=== PATIENT | male | born 1950 | race Caucasian/White ===

== ENCOUNTER 2022-07-08 13:33 | Inpatient (IN) ==
[2022-07-08] MEDS ORDERED: SODIUM CHLORIDE 0.9% 1000ML 1,000 ML IV STA (13:46)
[2022-07-08] MEDS ORDERED: ONDANSETRON INJ 2 MG/ML 2 ML VIAL IV STA (13:46)
--- NOTE | 2022-07-08 13:56 | Emergency Department Note ---
Impression & Plan Avascular necrosis of bone of right hip, Acute lumbar radiculopathy ED Provider Note NAME: ANÍBAL WILSON AGE: 71 SEX: M : 1950 ARRIVES VIA: Ambulance INFORMANT: Patient, ED PROVIDER(S): Christopher Jacobs DO CHIEF COMPLAINT: Hip pain HPI: The patient is a 71-year-old male who presented to the emergency department by ambulance for an evaluation of hip pain. The patient has a history of avascular necrosis of his right hip. He also has a history of lumbar disc disease. The patient states that he has been managed with outpatient medi cations until over the last 48 hours. He started noticing worsening pain especially over his right hip. He states when he went to get out of bed this morning his pain was very severe. He presented to the emergency department by ambulance for his pain. The patient states has been compliant with his outpatient medications. He recently had a cardiac catheterization. He did not require any stenting at that time but he does have a history of coronary artery disease and stenting in the past. The patient had an MRI at the beginning of this month. This was done at the [place] [facility]. The patient states no surgical intervention was required at that time. The patient denies having any trauma. He states his pain is severe. ROS: See above HPI for pertinent positives & negatives. A total of 10 systems reviewed and were otherwise negative. PAST MEDICAL HISTORY: See Below PAST SURGICAL HISTORY: See Below FAMILY HISTORY: See Below SOCIAL HISTORY: See Below HOME MEDICATIONS: See Below ALLERGIES: See Below VITALS: See Below PHYSICAL EXAMINATION: GENERAL: Patient is awake and alert. The patient is very anxious appearing. He appears to be uncomfortable EYES: The conjunctivae are clear. The pupils are round and reactive. EARS, NOSE, MOUTH AND THROAT: The nose is without any evidence of any deformity. NECK: The neck is nontender and supple. RESPIRATORY: Normal respiratory effort is noted there is no evidence of wheezing rhonchi or rales CARDIOVASCULAR: Regular rate and rhythm noted there no murmurs rubs or gallops normal S1 normal S2. GASTROINTESTINAL: The abdomen is soft. Abdomen is nontender. BACK: No midline tenderness was noted however significant pain was noted over the right paravertebral musculature into the right sacroiliac joint. Range of motion does elicit pain. MUSCULOSKELETAL/EXTREMITIES: No gross deformity was noted. There is pain with range of motion testing of the right hip. There is no shortening. SKIN: Skin was warm and dry. Pulses are symmetric in both feet NEUROLOGIC: Patient is awake alert and oriented x3 strength is symmetric patellar reflexes are 1+ bilaterally. Achilles tendon reflexes were 1+ bilaterally. Great toe raise was symmetric. MEDICAL DECISION MAKING: The patient is a 71-year-old male who presented to the emergency department by ambulance for an evaluation of hip pain. The patient had no trauma but he does have a history of avascular necrosis. The patient presented to the emergency department for an evaluation because of severe pain. He has been taking his outpatient medication with only minimal relief. He is scheduled to see a pain specialist for injections in his back but this is not for many weeks. The patient has no focal neurologic deficits. I discussed the patient's laboratory and radiographic studies with him. I did review the patient's MRI report from the [place] [facility] which was done on June 29. Ultimately the patient was feeling somewhat better on reevaluation but he was still having severe pain with any ambulation. For this reason I will discuss his case with the on-call [facility] hospitalist. Triage Nursing notes reviewed. Prior medical records reviewed Vital Signs: reviewed and remarkable for no significant abnormalities Differential diagnosis: Musculoskeletal, disc herniation, fracture, metastatic disease, cord compr ession, discitis, sciatica, cauda equina, infection, aortic disease, renal colic, gastrointestinal, as well as other pathologies. ER treatment provided: See below Diagnostics interpreted by me: ECG: EKG was obtained in the emergency department. My interpretation is normal sinus rhythm at 70 bpm. There is no ectopy. There was no acute ST segment abnormalities noted. Left bundle branch block pattern was noted. This was compared to a tracing from July 21, 2003. No changes were noted. Cardiac Monitoring: An order was placed for continuous cardiac monitoring. The monitor shows a rate of 75 bpm with sinus rhythm. Laboratory studies: As stated above and show below. Imaging studies: See below. Radiographic imaging was reviewed by myself Consultation(s): I discussed this case with Dr. Lopez who is on-call for the [facility] group. Past Med/Surg History Medical History (Updated 07/08/22 @ 16:16 by Christopher Jacobs DO) Cardiac murmur DX CHILD> NO LONGER HAS PER PATIENT Hx of fracture of right hip Myocardial Infarction 2012 > 1 STENT Sleep apnea NO OFFICIAL DX Swallowing problem REASON FOR EGD Surgical History H/O heart artery stent 1 STENT> FEB 2013 > FOR CHEST PAIN> [facility] H/O left knee surgery H/O partial thyroidectomy History of cardiac cath SEE STENT INFO History of colonoscopy S/P cervical spinal fusion NO ROM RESTRICTION S/P tonsillectomy and adenoidectomy Family History Denies family history of Crohn's disease Colorectal cancer Ulcerative colitis Social History Smoking Status: Former smoker Tobacco Type: Cigarettes Cigarettes Per Day: 1 CIGAR PER DAY; Second Hand Exposure: No; Hx Alcohol Use: Yes Alcohol type: beer Alcohol Intake Frequency: 4 or More x per/Week Hx Substance Use: No Preferred Language: Thai Communication Ability: Effective [employer] Required: No Beliefs That Will Affect Care: None Current Living Situation: Alone Feels Safe at Home: Yes Assistive Devices: Glasses Allergies Allergies Allergy/AdvReac Type Severity Reaction Status Date / Time cashew nut Allergy Unknown Verified 07/01/22 12:54 Home Meds Home Medications Medication Instructions Recorded Confirmed alprazolam 0.25 mg tablet 0.25 mg PO BID 07/12/19 07/01/22 diphenhydramine HCl 25 mg capsule 25 mg PO DAILY PRN Allergy Symptoms 07/12/19 07/01/22 (Allergy (diphenhydramine)) hydrochlorothiazide 25 mg tablet 25 mg PO QAM 07/12/19 07/01/22 metoprolol tartrate 50 mg tablet 50 mg PO BID 07/12/19 07/01/22 atorvastatin 40 mg tablet 40 mg PO DAILY 05/11/22 07/01/22 losartan 50 mg tablet 50 mg PO DAILY 05/11/22 07/01/22 tamsulosin 0.4 mg capsule 0.4 mg PO DAILY 05/11/22 07/01/22 aspirin 81 mg tablet,delayed 81 mg PO DAILY 05/18/22 07/01/22 release Previous Rx's Medication Instructions Recorded pantoprazole 40 mg tablet,delayed 40 mg PO BID #180 tabs 07/26/19 release cetirizine 10 mg capsule 10 mg PO BID PRN Allergy Symptoms 01/10/20 #60 caps hydroxyzine HCl 25 mg tablet 50 mg PO .qhs PRN itching #60 tabs 01/10/20 omalizumab 150 mg/mL subcutaneous 300 mg (2 mL) subcut Q4WK #2 mL 07/16/20 syringe (Xolair) Results & Data (ED) Vital Signs Vital Signs - 24 hr 07/08/22 13:50 07/08/22 15:44 Temperature 37.3 C Temperature Source Oral Pulse Rate 75 Respiratory Rate 16 Respiratory Effort / Characteristics Non-Labored Spontaneous Respiratory Depth Normal Respiratory Pattern Regular Blood Pressure 173/95 H Blood Pressure [Right Arm] 150/80 H Blood Pressure Mean 121 Blood Pressure Mean [Right Arm] 103 Blood Pressure Position Lying Blood Pressure Position [Right Arm] Lying Pulse Oximetry 95 Oxygen Delivery Method Room Air Sepsis Recent Fever Within 48 Hours No Sepsis New/Unexplained Change in Mental Status No Sepsis Action Taken by Nursing No Action Required Home Medications Current Medication List: was personally reviewed by me Laboratory Data Attestation: I reviewed the patient's lab results. 07/08/22 13:55 07/08/22 13:55 Lab Results 07/08/22 07/08/22 07/08/22 Range/Units 13:55 13:55 13:55 WBC 6.66 (4.8-10.8) K/ul RBC 4.83 (4.70-6.10) M/uL Hgb 15.9 (14.0-18.0) g/dl Hct 43.0 (42.0-52.0) % MCV 89.0 (80.0-100.0) fL MCH 32.9 (25.0-34.0) pg MCHC 37.0 H (32.0-36.0) g/dL RDW Std Deviation 40.2 (36.4-46.3) fL RDW Coeff of Nora 12.2 (11.5-14.5) % Plt Count 164 (130-400) K/uL MPV 11.1 (9.4-12.4) fL Immature Gran % (Auto) 0.5 % Neut % (Auto) 76.5 % Lymph % (Auto) 15.9 % Cherokee % (Auto) 5.9 % Eos % (Auto) 0.6 % Baso % (Auto) 0.6 % Neut # (Auto) 5.10 (1.40-6.50) K/uL Lymph # (Auto) 1.06 L (1.2-3.4) K/uL Cherokee # (Auto) 0.39 (0.11-0.59) K/uL Eos # (Auto) 0.04 (0-0.50) K/uL Baso # (Auto) 0.04 (0-0.2) K/uL Immature Gran # (Auto) 0.03 (0.01-0.20) K/uL PT 11.3 (9.0-12.0) Seconds INR 1.1 (0.9-1.1) APTT 26.2 (21.0-31.0) Seconds PTT Ratio 1.0 Sodium 138 (136-145) mmol/L Potassium 3.8 (3.5-5.1) mmol/L Chloride 101 (98-107) mmol/L Carbon Dioxide 29 (21-32) mmol/L Anion Gap 8 (3-11) BUN 23 (6-23) mg/dl Creatinine 1.17 (0.6-1.4) mg/dl Est Cr Clr Drug Dosing 65.4 ml/min Est GFR ( Amer) 72.8 ml/min Est GFR (Non-Af Amer) 62.8 ml/min BUN/Creatinine Ratio 19.7 (10-20) Glucose 102 H (70-99(Fasting)) mg/dl Calcium 10.3 H (8.5-10.1) mg/dl Total Bilirubin 1.0 (0.2-1.0) mg/dl AST 22 (13-39) U/L ALT 19 (7-52) U/L Alkaline Phosphatase 46 (34-104) U/L Troponin I High Sens 7.7 (0-20) pg/ml Total Protein 7.6 (6.0-8.3) gm/dl Albumin 4.6 (3.4-5.0) gm/dl Globulin 3.0 (2.5-4.0) gm/dl Albumin/Globulin Ratio 1.5 (0.9-2) Lipase 27 (11-82) U/L Urine Color Urine Appearance (Clear) Urine pH (4.5-7.5) Ur Specific Freedom (1.000-1.030) Urine Protein (Negative) Urine Glucose (UA) (Negative) Urine Ketones (Negative) Urine Blood (Negative) Urine Nitrite (Negative) Urine Bilirubin (Negative) Urine Urobilinogen (Negative) Ur Leukocyte Esterase (Negative) SARS-CoV-2, RNA, NAAT (NEGATIVE) 07/08/22 07/08/22 Range/Units 14:19 14:19 WBC (4.8-10.8) K/ul RBC (4.70-6.10) M/uL Hgb (14.0-18.0) g/dl Hct (42.0-52.0) % MCV (80.0-100.0) fL MCH (25.0-34.0) pg MCHC (32.0-36.0) g/dL RDW Std Deviation (36.4-46.3) fL RDW Coeff of Nora (11.5-14.5) % Plt Count (130-400) K/uL MPV (9.4-12.4) fL Immature Gran % (Auto) % Neut % (Auto) % Lymph % (Auto) % Cherokee % (Auto) % Eos % (Auto) % Baso % (Auto) % Neut # (Auto) (1.40-6.50) K/uL Lymph # (Auto) (1.2-3.4) K/uL Cherokee # (Auto) (0.11-0.59) K/uL Eos # (Auto) (0-0.50) K/uL Baso # (Auto) (0-0.2) K/uL Immature Gran # (Auto) (0.01-0.20) K/uL PT (9.0-12.0) Seconds INR (0.9-1.1) APTT (21.0-31.0) Seconds PTT Ratio Sodium (136-145) mmol/L Potassium (3.5-5.1) mmol/L Chloride (98-107) mmol/L Carbon Dioxide (21-32) mmol/L Anion Gap (3-11) BUN (6-23) mg/dl Creatinine (0.6-1.4) mg/dl Est Cr Clr Drug Dosing ml/min Est GFR ( Amer) ml/min Est GFR (Non-Af Amer) ml/min BUN/Creatinine Ratio (10-20) Glucose (70-99(Fasting)) mg/dl Calcium (8.5-10.1) mg/dl Total Bilirubin (0.2-1.0) mg/dl AST (13-39) U/L ALT (7-52) U/L Alkaline Phosphatase (34-104) U/L Troponin I High Sens (0-20) pg/ml Total Protein (6.0-8.3) gm/dl Albumin (3.4-5.0) gm/dl Globulin (2.5-4.0) gm/dl Albumin/Globulin Ratio (0.9-2) Lipase (11-82) U/L Urine Color Yellow Urine Appearance Clear (Clear) Urine pH 7.0 (4.5-7.5) Ur Specific Freedom 1.021 (1.000-1.030) Urine Protein Negative (Negative) Urine Glucose (UA) Negative (Negative) Urine Ketones Negative (Negative) Urine Blood Negative (Negative) Urine Nitrite Negative (Negative) Urine Bilirubin Negative (Negative) Urine Urobilinogen Negative (Negative) Ur Leukocyte Esterase Negative (Negative) SARS-CoV-2, RNA, NAAT NEGATIVE (NEGATIVE) Administered Medications Morphine Sulfate (Morphine Sulfate 4 Mg/Ml 1 Ml Carp\Vial) 4 mg IV Q15M PRN PRN Reason: Pain Stop: 07/22/22 13:45 Last Admin: 07/08/22 14:08 Dose: 4 mg Documented By: ANNE MARIE Discontinued Medications Sodium Chloride (Nss 1000ml) 1,000 mls @ 999 mls/hr IV .Q1H1M STA Stop: 07/08/22 14:46 Last Infusion: 07/08/22 15:19 Dose: 0 mls/hr Documented By: Admin: 07/08/22 14:06 Dose: 999 mls/hr Documented By: ANNE MARIE Ondansetron HCl (Ondansetron Inj 2 Mg/Ml 2 Ml Vial) 4 mg IV NOW STA Stop: 07/08/22 13:47 Last Admin: 07/08/22 14:06 Dose: 4 mg Documented By: ANNE MARIE Imaging Data Radiologist's Impression: Chest X-Ray 07/08/22 13:46 SINGLE VIEW CHEST CLINICAL HISTORY: Right hip pain. FINDINGS: An AP, portable, upright chest radiograph is obtained. No prior studies are available for comparison at the time of dictation. The examination is degraded by portable technique and apical lordotic positioning. The cardiomediastinal silhouette is unremarkable noting atherosclerotic calcification of the thoracic aorta. There are tiny calcified granulomas. The lungs and pleural spaces are otherwise clear note mild bibasilar s carring/atelectasis. No pneumothorax is seen. The skeletal structures are osteopenic. The bony thorax is grossly intact. Fusion hardware is noted in the lower cervical spine. IMPRESSION: No active disease in the chest. ACT 112: Negative or not required by law. Electronically signed by: Bryan Jacobsen M.D. 07/08/2022 3:01 PM Femur X-Ray 07/08/22 13:46 SINGLE VIEW PELVIS; 3 VIEWS RIGHT FEMUR CLINICAL HISTORY: Right hip pain. FINDINGS: An AP view of the pelvis with AP, frog-leg, and crosstable lateral views of the right femur are obtained. No prior studies are available for comparison at the time of dictation. The skeletal structures are osteopenic. There is no radiographic evidence of acute fracture involving the hips or bony pelvis. There is no radiographic evidence of right femoral fracture. There is evidence of avascular necrosis of the femoral heads, right greater than left. Rhvd-vh-[id number] degenerative joint space narrowing is seen in both hips. There is degenerative sclerosis of the sacroiliac joints. Enthesophytes arise from the anterior superior iliac spines. Lumbosacral spondylosis is partially imaged. The right knee joint is grossly maintained. The overlying soft tissues are within normal limits. There are numerous pelvic phleboliths. Atherosclerotic calcification is seen in the femoral arteries. There is no evidence of bowel obstruction. IMPRESSION: 1. No acute bony abnormality is seen involving the hips or pelvis. 2. There is no radiographic evidence of right femoral fracture. 3. There is avascular necrosis of the femoral heads, right greater than left. 4. Degenerative change as above. Electronically signed by: Bryan Jacobsen M.D. 07/08/2022 2:59 PM Lumbar Spine X-Ray 07/08/22 13:46 LUMBAR SPINE 5 VIEWS HISTORY: Low back pain COMPARISON: None. FINDINGS: There is no fracture. There is 5 mm of anterolisthesis of L4 on L5. Mild disc space narrowing at L4-L5. The remaining disc spaces are preserved for age. Moderate facet degenerative changes within the lower lumbar spine. Avascul ar necrosis partially visualized femoral heads. This is better present on the same date pelvis radiograph. IMPRESSION: 1. No fractures within the lumbar spine. 2. Degenerative changes as described above. ACT 112: Negative or not required by law. Electronically signed by: Yoandy Virk M.D. 07/08/2022 3:14 PM Pelvis X-Ray 07/08/22 13:46 SINGLE VIEW PELVIS; 3 VIEWS RIGHT FEMUR CLINICAL HISTORY: Right hip pain. FINDINGS: An AP view of the pelvis with AP, frog-leg, and crosstable lateral views of the right femur are obtained. No prior studies are available for comparison at the time of dictation. The skeletal structures are osteopenic. There is no radiographic evidence of acute fracture involving the hips or bony pelvis. There is no radiographic evidence of right femoral fracture. There is evidence of avascular necrosis of the femoral heads, right greater than left. [id number] degenerative joint space narrowing is seen in both hips. There is degenerative sclerosis of the sacroiliac joints. Enthesophytes arise from the anterior superior iliac spines. Lumbosacral spondylosis is partially imaged. The right knee joint is grossly maintained. The overlying soft tissues are within normal limits. There are numerous pelvic phleboliths. Atherosclerotic calcification is seen in the femoral arteries. There is no evidence of bowel obstruction. IMPRESSION: 1. No acute bony abnormality is seen involving the hips or pelvis. 2. There is no radiographic evidence of right femoral fracture. 3. There is avascular necrosis of the femoral heads, right greater than left. 4. Degenerative change as above. Electronically signed by: Bryan Jacobsen M.D. 07/08/2022 2:59 PM Discharge Plan Visit Data Chief Complaint: Hip Pain Stated Complaint: R HIP PAIN ED Provider: Christopher Jacobs Discharge Problem: Avascular necrosis of bone of right hip, Acute lumbar radiculopathy Patient Disposition: Being Evaluated by Hospitalist Forms Stand Alone Forms: My [employer] Prescriptions Prescriptions: No Action alprazolam 0.25 mg tablet 0.25 mg PO BID diphenhydramine HCl [Allergy (diphenhydramine)] 25 mg capsule 25 mg PO DAILY PRN (Reason: Allergy Symptoms) hydrochlorothiazide 25 mg tablet 25 mg PO QAM metoprolol tartrate 50 mg tablet 50 mg PO BID pantoprazole 40 mg tablet,delayed release (DR/EC) 40 mg PO BID Qty: 180 1RF cetirizine 10 mg capsule 10 mg PO BID PRN (Reason: Allergy Symptoms) Qty: 60 6RF hydroxyzine HCl 25 mg tablet 50 mg PO .qhs PRN (Reason: itching) Qty: 60 6RF Xolair 150 mg/mL syringe 300 mg subcut Q4WK Qty: 2 11RF losartan 50 mg tablet 50 mg PO DAILY atorvastatin 40 mg tablet 40 mg PO DAILY tamsulosin 0.4 mg capsule 0.4 mg PO DAILY aspirin 81 mg Tablet,Delayed Release (Dr/Ec) 81 mg PO DAILY Referrals Referrals: Delmar Staples DO [Outside Practitioners] -
[2022-07-08] MEDS: MoRPHine SULFATE 4 MG/ML 1 ML CARP\\VIAL IV PRN ×3 (14:08→21:08)
[2022-07-08 14:36] LABS: Basophils # (auto) 0.04 K/uL (0-0.2); Basophils % (auto) 0.6 %; Eosinophils # (auto) 0.04 K/uL (0-0.50); Eosinophils % (auto) 0.6 %; Hemoglobin 15.9 g/dl (14.0-18.0); Immature Granulocytes # (auto) 0.03 K/uL (0.01-0.20); Immature Granulocytes % (auto) 0.5 %; Lymphocytes # (auto) 1.06 K/uL (1.2-3.4); Lymphocytes % (auto) 15.9 %; Mean Corpuscular Hemoglobin 32.9 pg (25.0-34.0); Mean Platelet Volume 11.1 fL (9.4-12.4); Monocytes # (auto) 0.39 K/uL (0.11-0.59); Monocytes % (auto) 5.9 %; Neutrophils % (auto) 76.5 %; Platelet Count 164 K/uL (130-400); RDW Coefficient of Variation 12.2 % (11.5-14.5); RDW Standard Deviation 40.2 fL (36.4-46.3); Red Blood Count 4.83 M/uL (4.70-6.10); White Blood Count 6.66 K/ul (4.8-10.8)
[2022-07-08 14:55] LABS: Albumin Globulin Ratio 1.5 (0.9-2); Albumin Level 4.6 gm/dl (3.4-5.0); BUN Creatinine Ratio 19.7 (10-20); Calcium 10.3 mg/dl (8.5-10.1); Creatinine Clr Calc Pharmacy 65.4 ml/min; Est GFR (African American) 72.8 ml/min; Est GFR (Non-African American) 62.8 ml/min; Potassium 3.8 mmol/L (3.5-5.1); Total Protein 7.6 gm/dl (6.0-8.3)
[2022-07-08 15:00] LABS: Troponin I High Sensitivity 7.7 pg/ml (0-20)
--- NOTE | 2022-07-08 15:01 | XRay Report ---
SINGLE VIEW PELVIS; 3 VIEWS RIGHT FEMUR CLINICAL HISTORY: Right hip pain. FINDINGS: An AP view of the pelvis with AP, frog-leg, and crosstable lateral views of the right femur are obtained. No prior studies are available for comparison at the time of dictation. The skeletal s tructures are osteopenic. There is no radiographic evidence of acute fracture involving the hips or b kira pelvis. There is no radiographic evidence of right femoral fracture. There is evidence of avascul ar necrosis of the femoral heads, right greater than left. Hplk-dh-[id number] degenerative joint space narrowing is seen in both hips. There is degenerative sclerosis of the sacroiliac joints. Enthesophyt es arise from the anterior superior iliac spines. Lumbosacral spondylosis is partially imaged. The ri ght knee joint is grossly maintained. The overlying soft tissues are within normal limits. There are numerous pelvic phleboliths. Atherosclerotic calcification is seen in the femoral arteries. There is no evidence of bowel obstruction. IMPRESSION: 1. No acute bony abnormality is seen involving the hips or pelvis. 2. There is no radiographic evidence of right femoral fracture. 3. There is avascular necrosis of the femoral heads, right greater than left. 4. Degenerative change as above. Electronically signed by: Bryan Jacobsen M.D. 07/08/2022 2:59 PM
--- NOTE | 2022-07-08 15:02 | XRay Report ---
SINGLE VIEW CHEST CLINICAL HISTORY: Right hip pain. FINDINGS: An AP, portable, upright chest radiograph is obtained. No prior studies are available for c omparison at the time of dictation. The examination is degraded by portable technique and apical lord otic positioning. The cardiomediastinal silhouette is unremarkable noting atherosclerotic calcificati on of the thoracic aorta. There are tiny calcified granulomas. The lungs and pleural spaces are other parker clear note mild bibasilar scarring/atelectasis. No pneumothorax is seen. The skeletal structures are osteopenic. The bony thorax is grossly intact. Fusion hardware is noted in the lower cervical sp ine. IMPRESSION: No active disease in the chest. ACT 112: Negative or not required by law. Electronically signed by: Bryan Jacobsen M.D. 07/08/2022 3:01 PM
[2022-07-08 15:08] LABS: Appearance Urine Clear (Clear); Bilirubin Urine Negative (Negative); Blood Urine Negative (Negative); Color Urine Yellow; Glucose Urine UA Negative (Negative); Ketones Urine Negative (Negative); Leukocyte Esterase Urine Negative (Negative); Nitrite Urine Negative (Negative); Protein Urine Negative (Negative); Specific Gravity Urine 1.021 (1.000-1.030); Urobilinogen Urine Negative (Negative)
--- NOTE | 2022-07-08 15:16 | XRay Report ---
LUMBAR SPINE 5 VIEWS HISTORY: Low back pain COMPARISON: None. FINDINGS: There is no fracture. There is 5 mm of anterolisthesis of L4 on L5. Mild disc space narrow ing at L4-L5. The remaining disc spaces are preserved for age. Moderate facet degenerative changes wi thin the lower lumbar spine. Avascular necrosis partially visualized femoral heads. This is better pr esent on the same date pelvis radiograph. IMPRESSION: 1. No fractures within the lumbar spine. 2. Degenerative changes as described above. ACT 112: Negative or not required by law. Electronically signed by: Yoandy Virk M.D. 07/08/2022 3:14 PM
[2022-07-08 15:19] LABS: INR 1.1 (0.9-1.1); Partial Thromboplastin Time 26.2 Seconds (21.0-31.0); Prothrombin Time 11.3 Seconds (9.0-12.0)
--- NOTE | 2022-07-08 16:57 | History & Physical Report ---
Date of Service July 08, 2022 Assessment & Plan (1) Acute lumbar radiculopathy: Plan: Low back pain with right leg radiculopathy Worsened x24 hours, with shooting pain down the right leg into the ankle -MRI lumbar without contrast from 06/29/2022: Multilevel for aminal stenosis, spinal stenosis L3-L4/L4-L5,. Thecal sac 8.6 mm L3-L4 with moderate right neural for aminal stenosis, moderate foraminal stenosis on the left. L4/L5 7 mm anterior listhesis with broad-based disc protrusion indenting the ventral thecal sac, thecal sac measuring 7.5 mm suggestive of spinal canal stenosis with marked for aminal stenosis on the right/left and Samson equina compression. L5/S1 broad-based disc bulge, spinal canal within normal limits, bilateral neural for aminal stenosis. Patient is without weakness, numbness, urinary retention, or saddle anesthesia Had discussed MRI above and back pain with orthospine at [place], was pending an epidural injection in July rather than pursuing lumbar decompression Avascular necerosis as noted below; Physical exam on admission more consistent with lumbar stenosis with radiculopathy -Multimodal pain control. Aspirin, Toradol, breakthrough hydromorphone third- line. If adequate pain control cannot be achieved with multimodal control above, consult pain management in a.m. for consideration of epidural injection If weakness, urinary retention, incontinence, or other red flag symptoms develop repeat stat MRI. (2) Avascular necrosis of bone of right hip: Plan: Patient has known avascular necrosis of both femoral heads right greater than left, is anticipating joint replacement after his back pain is better controlled. Physical exam on admission more consistent with lumbar stenosis with radiculopathy -Pelvis XR: IMPRESSION:1. No acute bony abnormality is seen involving the hips or pelvis.2. There is no radiographic evidence of right femoral fracture.3. There is avascular necrosis of the femoral heads, right greater than left.4. Degenerative change as above. -Lumbar x-ray: No acute fractures, degenerative changes -Right femur: No evidence of right femoral fracture. Avascular necrosis of the femoral head right greater than left. Continue pain control as above (3) CAD (coronary atherosclerotic disease): Plan: cardiac cath 05/18/2022 which showed mild in-stent restenosis and multivessel mild to moderate nonocclusive coronary disease. - Had 1X mid RCA stent originally placed in 2012. At cath 05/18 PCI was not recommended. P - At time of bedside visit he does not have any shortness of breath, difficulty breathing, or chest pain. Continue metoprolol, losartan, atorvastatin, aspirin. Given existing stent with restenosis will not hold aspirin prior to pain management evaluation (4) Chronic idiopathic urticaria: Plan: Continue home omalizumab, patient next due in July No hives on assessment, continue outpatient follow-up (5) Hyperlipidemia: Plan: Continue statin (6) Reflux esophagitis: Plan: Continue Protonix (7) HTN (hypertension): Plan: Continue hydrochlorothiazide/losartan/metoprolol Patient does not know medications by heart, but denies recent medication changes other than the ones made at his catheterization and endorses medications as reviewed from last visit. History of Present Illness Primary Care Provider: [facility] Nguyễn is a 71-year-old male with a past medical history of CAD, chronic angina, hyperlipidemia, reflux esophagitis, hypertension, and avascular necrosis of the right hip who presents with inability to ambulate due to severe pain of the right hip. He was recently seen at [facility] with an MRI 06/29/2021 which showed evidence of spinal stenosis without significant compression or cauda equina. You are seen at bedside. He reports he has a longstanding history of bilateral hip pain due to avascular necrosis for which she is following with orthopedics with the [facility], eventually will have a hip replacement but has been pending work-up for his back pain first. He has had progressive back pain over the last 2 years and has lumbar stenosis. He was recently seen in the [facility] 06/29/2022 for severe back pain. He had a MRI at that time which was reviewed and shows as follows: MRI lumbar without contrast from 06/29/2022: Multilevel for aminal stenosis, spinal stenosis L3-L4/L4-L5,. Thecal sac 8.6 mm L3-L4 with moderate right neural for aminal stenosis, moderate foraminal stenosis on the left. L4/L5 7 mm anterior listhesis with broad-based disc protrusion indenting the ventral thecal sac, thecal sac measuring 7.5 mm suggestive of spinal canal stenosis with marked for aminal stenosis on the right/left and Samson equina compression. L5/S1 broad-based disc bulge, spinal canal within normal limits, bilateral neural for aminal stenosis. Saw Dr. Dominick Aguila [facility] and discussed the above results with him. Per that consultation did not want to perform decompression surgery yet, but was going to try and injection shceduled for August 17. He reports after being discharged his back pain did improve, but suddenly worsened when he woke up this morning. He reports his pain was so severe he could not get out of bed due to pain and had to crawl to the door to let his dog out. He has not had any numbness/tingling or weakness, but his leg movement is limited by exacerbation of pain. Does have shooting pain which goes into his right leg and travels all the way down to the ankle. No pain in his left leg. He is chronically weaker on his right leg, but his strength in the lower extremities has not changed. He is voiding/peeing normally. He has not had a bowel movement in 2 days, is passing gas. He does not have any numbness/tingling in the saddle region. Reports he has had intermittent chest pain with ambulation, had a cardiac cath 05/18/2022 which showed mild in-stent restenosis and multivessel mild to moderate nonocclusive coronary disease. Had 1X mid RCA stent originally placed in 2012. At cath 05/18 PCI was not recommended. Patient was optimized on medical therapy with resumption of low-dose aspirin, and high intensity statin therapy, beta-sandi, and losartan. At time of bedside visit he does not have any shortness of breath, difficulty breathing, or chest pain. Pelvix XR: IMPRESSION:1. No acute bony abnormality is seen involving the hips or pelvis.2. There is no radiographic evidence of right femoral fracture.3. There is avascular necrosis of the femoral heads, right greater than left.4. Degenerative change as above. Lumbar x-ray: No acute fractures, degenerative changes Right femur: No evidence of right femoral fracture. Avascular necrosis of the femoral head right greater than left. CXR: No acute findings hx [facility] fusion by [facility] 2008 Otherwise endorse history of hives on Omalizumab 300m next due 2nd week of july. takes for hives. Follows with Dr. Rojas as an outpatient. No recent exacerbation of hives. Medical History: Reviewed Medications: Reviewed Surgical History: Reviewed Allergies: Reviewed Social History: Quit cigarettes 2002. Etoh 6 pack daily, last drink 3 days ago, has not had withdrawal symptoms/seizures before and does not feel tremulous. Code Status: Full Code Allergies Allergy/AdvReac Type Severity Reaction Status Date / Time cashew nut Allergy Unknown Verified 07/01/22 12:54 Home Medications Medication Instructions Recorded Confirmed Type alprazolam 0.25 mg tablet 0.25 mg PO BID 07/12/19 07/01/22 History diphenhydramine HCl 25 mg capsule 25 mg PO DAILY PRN Allergy Symptoms 07/12/19 07/01/22 History (Allergy (diphenhydramine)) hydrochlorothiazide 25 mg tablet 25 mg PO QAM 07/12/19 07/01/22 History metoprolol tartrate 50 mg tablet 50 mg PO BID 07/12/19 07/01/22 History pantoprazole 40 mg tablet,delayed 40 mg PO BID #180 tabs 07/26/19 07/01/22 Rx release cetirizine 10 mg capsule 10 mg PO BID PRN Allergy Symptoms 01/10/20 07/01/22 Rx #60 caps hydroxyzine HCl 25 mg tablet 50 mg PO .qhs PRN itching #60 tabs 01/10/20 07/01/22 Rx omalizumab 150 mg/mL subcutaneous 300 mg (2 mL) subcut Q4WK #2 mL 07/16/20 07/01/22 Rx syringe (Xolair) atorvastatin 40 mg tablet 40 mg PO DAILY 05/11/22 07/01/22 History losartan 50 mg tablet 50 mg PO DAILY 05/11/22 07/01/22 History tamsulosin 0.4 mg capsule 0.4 mg PO DAILY 05/11/22 07/01/22 History aspirin 81 mg tablet,delayed 81 mg PO DAILY 05/18/22 07/01/22 History release Past Med/Surg History Medical History (Updated 07/08/22 @ 16:16 by Christopher Jacobs DO) Cardiac murmur DX CHILD> NO LONGER HAS PER PATIENT Hx of fracture of right hip Myocardial Infarction 2012 > 1 STENT Sleep apnea NO OFFICIAL DX Swallowing problem REASON FOR EGD Surgical History H/O heart artery stent 1 STENT> FEB 2013 > FOR CHEST PAIN> [facility] H/O left knee surgery H/O partial thyroidectomy History of cardiac cath SEE STENT INFO History of colonoscopy S/P cervical spinal fusion NO ROM RESTRICTION S/P tonsillectomy and adenoidectomy Family History Denies family history of Crohn's disease Colorectal cancer Ulcerative colitis Social History Smoking Status: Former smoker Tobacco Type: Cigarettes Cigarettes Per Day: 1 CIGAR PER DAY; Second Hand Exposure: No; Hx Alcohol Use: Yes Alcohol type: beer Alcohol Intake Frequency: 4 or More x per/Week Hx Substance Use: No Preferred Language: Chinese Communication Ability: Effective Travel Pta Required: No Beliefs That Will Affect Care: None Current Living Situation: Alone Feels Safe at Home: Yes Assistive Devices: Glasses Review of Systems Review of Systems: All systems reviewed & are unremarkable except as noted in HPI & below Physical Exam Physical Exam: General: A&Ox3. NAD. Cooperative. HEENT: Atraumatic, normocephalic. Vision/hearing grossly intact. Pupils equal and reactive to light. Pulm: CTAB A&P. -wheezes, -rales, -rhonchi. Symmetrical chest rise. No increased work of breathing. No respiratory distress. Cardiac: RRR, -mrg. Radial pulses intact and symmetrical. Abdominal: Nontender, nondistended, soft. BS present. Extremities: Right and left hip flexion 5/5, somewhat limited by pain but with full strength with effort. Ankle dorsiflexion/plantarflexion 5/5 bilaterally. Sensation soft touch intact in foot, ankle, distal lower leg, and proximal lower leg bilaterally. No saddle anesthesia. PT pulse intact bilaterally, cap refill less than 2 seconds. Moves upper extremities equally with full ladies' locker room attendant strength, sensation to soft touch intact in hands bilaterally. Results & Data Results & Data ([facility]) Vital Signs (Past 12 Hours) Vital Signs Temp Pulse Resp BP BP Pulse Ox O2 Del Method 07/08/22 15:44 150/80 H 07/08/22 13:50 37.3 C 75 16 173/95 H 95 Room Air PG Care Time/CCT Total # of Minutes Spent Total Time Spent with Patient: Total time spent is greater than 50% in coordination of care (as documented) at patient's floor/unit and/or counseling patient: Coding Level of Care Code 78796 INT INP/OBS CARE MIN Diagnoses Acute lumbar radiculopathy M54.16 Avascular necrosis of bone of right hip M87.051 CAD (coronary atherosclerotic disease) I25.10 Chronic idiopathic urticaria L50.1 Hyperlipidemia E78.5 Reflux esophagitis K21.0 HTN (hypertension) I10
[2022-07-08] MEDS ORDERED: MoRPHine SULFATE 2 MG/ML CARP IV PRN (20:30)
[2022-07-08] MEDS: KETOROLAC TROMETHAMINE 15 MG/ML VIAL IV PRN (21:28)
[2022-07-08] MEDS: PANTOprazole 40 MG TAB PO SCH (23:05)
[2022-07-08] MEDS: METOPROLOL TARTRATE 50 MG TAB PO SCH (23:05)
[2022-07-08] MEDS ORDERED: KETOROLAC TROMETHAMINE 15 MG/ML VIAL IV ONE (23:16)
[2022-07-08] MEDS: ACETAMINOPHEN 325 MG TAB PO PRN (23:24)
--- NOTE | 2022-07-08 23:27 | Electrocardiogram Report ---
Test Reason : Blood Pressure : / mmHG Vent. Rate : 070 BPM Atrial Rate : 070 BPM P-R Int : 158 ms QRS Dur : 136 ms QT Int : 412 ms P-R-T Axes : 045 000 084 degrees QTc Int : 444 ms Poor data quality, interpretation may be adversely affected Normal sinus rhythm Left bundle branch block Abnormal ECG When compared with ECG of 21-JUL-2003 07:03, Left bundle branch block is new Confirmed by Jp Noriega ([id number]) on 07/08/2022 11:26:51 PM Referred By: REFERRED SELF Confirmed By:Pino Noriega
[2022-07-09] MEDS: ACETAMINOPHEN 325 MG TAB PO PRN (06:03)
[2022-07-09] MEDS: KETOROLAC TROMETHAMINE 15 MG/ML VIAL IV PRN (06:04)
[2022-07-09 06:32] LABS: Basophils # (auto) 0.04 K/uL (0-0.2); Basophils % (auto) 0.6 %; Eosinophils # (auto) 0.13 K/uL (0-0.50); Hematocrit (blood only) 38.3 % (42.0-52.0); Hemoglobin 13.8 g/dl (14.0-18.0); Immature Granulocytes # (auto) 0.03 K/uL (0.01-0.20); Immature Granulocytes % (auto) 0.5 %; Lymphocytes # (auto) 1.75 K/uL (1.2-3.4); Lymphocytes % (auto) 26.8 %; Mean Corpuscular Hemoglobin 32.9 pg (25.0-34.0); Mean Corpuscular Volume 91.2 fL (80.0-100.0); Mean Platelet Volume 10.8 fL (9.4-12.4); Monocytes # (auto) 0.67 K/uL (0.11-0.59); Monocytes % (auto) 10.3 %; Neutrophils # (auto) 3.91 K/uL (1.40-6.50); Neutrophils % (auto) 59.8 %; Platelet Count 156 K/uL (130-400); RDW Coefficient of Variation 12.5 % (11.5-14.5); RDW Standard Deviation 41.1 fL (36.4-46.3); White Blood Count 6.53 K/ul (4.8-10.8)
[2022-07-09] MEDS: MoRPHine SULFATE 4 MG/ML 1 ML CARP\\VIAL IV PRN ×3 (06:34→19:38)
[2022-07-09 06:51] LABS: Calcium 9.3 mg/dl (8.5-10.1); Creatinine Clr Calc Pharmacy 50.9 ml/min; Est GFR (African American) 53.9 ml/min; Est GFR (Non-African American) 46.5 ml/min; Potassium 3.9 mmol/L (3.5-5.1)
--- NOTE | 2022-07-09 08:18 | Orthopedic Consultation ---
Date of Consultation July 09, 2022 Assessment & Plan (1) Acute lumbar radiculopathy: X-rays lumbar spine do demonstrate evidence of anterolisthesis L4-L5 and normal degenerative type change. In light of his marked change in presentation with weakness and intense radiculopathy I am going to order an updated MRI lumbar spine to review with the patient. He understands and agrees. History of Present Illness Reason for Consultation: Back and right leg pain Attending Physician: Rosa Gibbs, History of Present Illness This a very pleasant 71-year-old male who presents with a marked decline in status. He has known spinal stenosis and right sided radiculopathy in the leg. He had a marked increase in pain over the last day and unable to ambulate. He states his left lower extremity is asymptomatic. He is comfortable in spine position but cannot stand and ambulate. Allergies Allergy/AdvReac Type Severity Reaction Status Date / Time cashew nut Allergy Unknown Verified 07/01/22 12:54 Home Medications Medication Instructions Recorded Confirmed Type alprazolam 0.25 mg tablet 0.25 mg PO BID 07/12/19 07/01/22 History diphenhydramine HCl 25 mg capsule 25 mg PO DAILY PRN Allergy Symptoms 07/12/19 07/01/22 History (Allergy (diphenhydramine)) hydrochlorothiazide 25 mg tablet 25 mg PO QAM 07/12/19 07/01/22 History metoprolol tartrate 50 mg tablet 50 mg PO BID 07/12/19 07/01/22 History pantoprazole 40 mg tablet,delayed 40 mg PO BID #180 tabs 07/26/19 07/01/22 Rx release cetirizine 10 mg capsule 10 mg PO BID PRN Allergy Symptoms 01/10/20 07/01/22 Rx #60 caps hydroxyzine HCl 25 mg tablet 50 mg PO .qhs PRN itching #60 tabs 01/10/20 07/01/22 Rx omalizumab 150 mg/mL subcutaneous 300 mg (2 mL) subcut Q4WK #2 mL 07/16/20 07/01/22 Rx syringe (Xolair) atorvastatin 40 mg tablet 80 mg PO DAILY 05/11/22 07/01/22 History losartan 50 mg tablet 50 mg PO DAILY 05/11/22 07/01/22 History tamsulosin 0.4 mg capsule 0.4 mg PO DAILY 05/11/22 07/01/22 History aspirin 81 mg tablet,delayed 81 mg PO DAILY 05/18/22 07/01/22 History release Patient History Medical History (Updated 07/08/22 @ 16:16 by Christopher Jacobs DO) Cardiac murmur DX CHILD> NO LONGER HAS PER PATIENT Hx of fracture of right hip Myocardial Infarction 2012 > 1 STENT Sleep apnea NO OFFICIAL DX Swallowing problem REASON FOR EGD Surgical History H/O heart artery stent 1 STENT> FEB 2013 > FOR CHEST PAIN> [facility] H/O left knee surgery H/O partial thyroidectomy History of cardiac cath SEE STENT INFO History of colonoscopy S/P cervical spinal fusion NO ROM RESTRICTION S/P tonsillectomy and adenoidectomy Family History Denies family history of Crohn's disease Colorectal cancer Ulcerative colitis Social History Smoking Status: Former smoker Tobacco Type: Cigarettes Cigarettes Per Day: 1 CIGAR PER DAY; Smoking End Date: 2002; Second Hand Exposure: No; Hx Alcohol Use: Yes Alcohol type: beer Alcohol Intake Frequency: 4 or More x per/Week Hx Substance Use: No Preferred Language: [place]ican Communication Ability: Effective 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 He has weakness to dorsiflexion extensor houses longus on the right with a part 5 on the left. Cold sensation and touch is somewhat diminished on the right lower extremity compared to the left. He has marked tension signs straight leg raising on the right compared to the left. Results & Data ([facility]) Vital Signs (Past 12 Hours) Vital Signs Temp Pulse Resp BP Pulse Ox O2 Del Method 07/09/22 07:37 36.4 C L 57 L 16 108/70 93 Room Air 07/08/22 22:30 Room Air 07/08/22 21:00 Room Air 07/08/22 21:00 36.7 C 71 22 152/63 H 95 Room Air 07/08/22 21:56 36.7 C 66 17 116/71 99 Room Air
[2022-07-09] MEDS: ATORVASTATIN 40 MG TAB PO SCH (08:30)
[2022-07-09] MEDS: TAMSULOSIN HCL 0.4 MG CAP PO SCH (08:30)
[2022-07-09] MEDS: METOPROLOL TARTRATE 50 MG TAB PO SCH ×2 (08:30→20:36)
[2022-07-09] MEDS: ASPIRIN 81 MG ECTAB PO SCH (08:30)
--- NOTE | 2022-07-09 08:57 | Hospitalist Progress Note ---
Date of Service July 09, 2022 Assessment & Plan (1) Acute lumbar radiculopathy: Plan: - Worsened x24 hours prior to admission, with shooting pain down the right leg into the ankle - MRI 07/09 without acute fractures, Grade 1 anterolisthesis L4-5, and L4-L5 spurring and facet arthrosis causing severe canal stenosis and moderate bilateral neuroforaminal stenosis - Patient is without weakness, numbness, urinary retention, or saddle anesthesia; however has significant pain with movement - Scheduled Tylenol with morphine for pain as needed, is working well - Ortho Spine consulted and appreciate recommendations, case discussed with Dr. Burger; for possible surgical correction on Monday (2) Avascular necrosis of bone of right hip: Plan: - Patient has known avascular necrosis of both femoral heads right greater than left; is anticipating joint replacement after his back pain is better controlled. Physical exam on admission more consistent with lumbar stenosis with radiculopathy - Pelvis XR: No acute bony abnormality is seen involving the hips or pelvis. There is avascular necrosis of the femoral heads, right greater than left.4. Degenerative change as above - Lumbar x-ray: No acute fractures, degenerative changes. See #1 - Right femur: No evidence of right femoral fracture. Avascular necrosis of the femoral head right greater than left - Continue pain control as above (3) CAD (coronary atherosclerotic disease): Plan: - Cardiac cath 05/18/2022 which showed mild in-stent restenosis and multivessel mild to moderate nonocclusive coronary disease - Had RCA stent x1 originally placed in 2012. At cath 05/18 PCI was not recommended - At time of bedside visit he does not have any shortness of breath, difficulty breathing, or chest pain - Continue metoprolol, losartan, atorvastatin, aspirin (4) Chronic idiopathic urticaria: Plan: - Continue home omalizumab, patient next due in July - No hives on assessment, continue outpatient follow-up (5) Hyperlipidemia: Plan: - Continue statin (6) Reflux esophagitis: Plan: - Continue Protonix (7) HTN (hypertension): Plan: - Continue metoprolol - Patient does not know medications by heart, but denies recent medication changes other than the ones made at his catheterization and endorses medications as reviewed from last visit (8) ADA (acute kidney injury): Plan: NSS bolus Hold HCTZ/losartan for now BMP daily Admission and Anticipated Discharge Date Admission Date: July 08, 2022 Subjective No overnight events. Patient's pain is well controlled with prn pain medications. He denies SOB, chest pain, abdominal pain. Review of Systems Review of Systems: All systems reviewed & are unremarkable except as noted in Subjective Physical Exam Constitutional: WD/WN, vitals as above Respiratory: normal respiratory effort, lungs clear to auscultation Cardiovascular: RRR, no murmur, no edema Gastrointestinal (Abdomen): normal bowel sounds, soft, nontender, no hepatosplenomegaly Skin: no rashes, warm and dry Psychiatric: A+Ox3, euthymic affect Results & Data Results & Data ([facility]) Vital Signs (Past 12 Hours) Vital Signs Temp Pulse Resp BP Pulse Ox O2 Del Method 07/09/22 07:37 36.4 C L 57 L 16 108/70 93 Room Air 07/08/22 22:30 Room Air 07/08/22 21:00 Room Air 07/08/22 21:00 36.7 C 71 22 152/63 H 95 Room Air 07/08/22 21:56 36.7 C 66 17 116/71 99 Room Air PG Care Time/CCT Total # of Minutes Spent Total Time Spent with Patient: Total time spent is greater than 50% in coordination of care (as documented) at patient's floor/unit and/or counseling patient: Coding Level of Care Code 56216 SUB INP/OBS CARE 3/50MIN Diagnoses Acute lumbar radiculopathy M54.16 Avascular necrosis of bone of right hip M87.051 CAD (coronary atherosclerotic disease) I25.10 Chronic idiopathic urticaria L50.1 Hyperlipidemia E78.5 Reflux esophagitis K21.0 HTN (hypertension) I10 ADA (acute kidney injury) N17.9
[2022-07-09] MEDS ORDERED: LOSARTAN POTASSIUM 50 MG TAB PO SCH (09:00)
[2022-07-09] MEDS ORDERED: hydroCHLOROthiazide 25 MG TAB PO SCH (09:00)
[2022-07-09] MEDS ORDERED: KETOROLAC TROMETHAMINE 15 MG/ML VIAL IV PRN (09:07)
[2022-07-09] MEDS ORDERED: SODIUM CHLORIDE 0.9% 1000ML 1,000 ML IV ONE (10:17)
[2022-07-09] MEDS: PANTOprazole 40 MG TAB PO SCH ×2 (10:24→20:36)
[2022-07-09] MEDS: ACETAMINOPHEN 500 MG TAB PO SCH ×2 (10:40→18:44)
--- NOTE | 2022-07-09 12:03 | Magnetic Resonance Report ---
MR lumbar spine wo con CLINICAL HISTORY: 71 years-old Male with right leg pain and weakness. Acute low back pain with lower extremity radicular symptoms COMPARISON: Lumbar spine radiographs 07/08/2022 TECHNIQUE: Multiplanar, multi sequence MRI of the lumbar spine was performed without intravenous cont rast. FINDINGS: Ingot Supervisor localizer images demonstrate avascular necrosis of the femoral heads. Minimal lumbar levoscolio sis. Unremarkable soft tissues. 4 mm anterolisthesis L4 on L5, likely degenerative. No acute fracture , subluxation or endplate erosion. Deep tissue edema adjacent to the L4-L5 facets, likely degenerativ e. Mild marrow edema involving L4-L5 pedicles is likely reactive. The conus medullaris terminates at T12-L1. Signal within the imaged thoracic spinal cord is within normal limits. There is mild to moder ate intervertebral disc space narrowing and spondylitic spurring throughout the thoracolumbar spine. Moderate to severe lumbar facet arthrosis. T12-L1: No central canal or neural foraminal stenosis. L1-L2: No central canal or neural foraminal stenosis. L2-L3: Tiny posterior annular disc bulge. Mild spondylitic spurring with ligamentum flavum thickenin g and moderate facet arthrosis. Mild to moderate right with mild left neural foraminal narrowing. L3-L4: Mild intervertebral disc space narrowing with mild spondylitic spurring and small circumferen tial annular disc bulge. Ligamentum flavum thickening with moderate to severe facet arthrosis. Flatte parveen of the ventral thecal sac without significant central canal stenosis. Mild bilateral foraminal n arrowing. L4-L5: Grade 1 anterolisthesis, likely degenerative. Mild intervertebral disc space narrowing with s pondylitic spurring, circumferential annular disc bulge with posterior annular fissure and small cent ral disc protrusion. Ligamentum flavum thickening with severe facet arthrosis and moderate facet effu sions. Severe central canal stenosis, AP dimension of the thecal sac measuring 5 mm. Severe narrowing of the lateral recesses. Moderate bilateral foraminal narrowing, right greater than left. L5-S1: Mild spondylitic spurring with small circumferential annular disc bulge. Ligamentum flavum th ickening with severe facet arthrosis and trace facet effusions. Flattening of the ventral thecal sac without significant central canal stenosis. Mild bilateral foraminal narrowing. IMPRESSION: 1. No acute fracture or subluxation. 2. Discogenic degeneration with spondylitic spurring and advanced facet arthrosis at L4-L5 contribute s to cause severe central canal stenosis with moderate bilateral foraminal narrowing. 3. Additional neural foraminal stenosis as above. 4. Grade 1 anterolisthesis L4 on L5, likely secondary to chronic facet arthrosis. ACT 112: Negative or not required by law. The above report was generated using voice recognition software. It may contain grammatical, syntax o r spelling errors. Dictated: 07/09/2022 10:42 AM Transcribed: 07/09/2022 11:54 AM Quinn [id number] [email or web address] Electronically signed by: Golden García M.D. 07/09/2022 12:01 PM
[2022-07-09] MEDS: ALPRAZolam 0.25 MG TABLET PO PRN (12:41)
[2022-07-09] MEDS: ENOXAPARIN INJ 40 MG/0.4 ML SYR SQ SCH (20:36)
[2022-07-10] MEDS: MoRPHine SULFATE 4 MG/ML 1 ML CARP\\VIAL IV PRN ×3 (00:01→07:27)
[2022-07-10] MEDS: ACETAMINOPHEN 500 MG TAB PO SCH ×3 (01:13→18:18)
[2022-07-10 06:33] LABS: Hematocrit (blood only) 37.9 % (42.0-52.0); Hemoglobin 13.6 g/dl (14.0-18.0); Mean Corpuscular Hemoglobin 32.9 pg (25.0-34.0); Mean Corpuscular Hgb Conc 35.9 g/dL (32.0-36.0); Mean Corpuscular Volume 91.5 fL (80.0-100.0); Mean Platelet Volume 10.8 fL (9.4-12.4); Platelet Count 143 K/uL (130-400); RDW Coefficient of Variation 12.3 % (11.5-14.5); RDW Standard Deviation 41.1 fL (36.4-46.3); Red Blood Count 4.14 M/uL (4.70-6.10); White Blood Count 6.42 K/ul (4.8-10.8)
[2022-07-10 06:52] LABS: BUN Creatinine Ratio 23.5 (10-20); Calcium 9.4 mg/dl (8.5-10.1); Creatinine Clr Calc Pharmacy 66.4 ml/min; Est GFR (African American) 74.3 ml/min; Est GFR (Non-African American) 64.1 ml/min; Potassium 4.1 mmol/L (3.5-5.1)
--- NOTE | 2022-07-10 07:42 | Hospitalist Progress Note ---
Date of Service July 10, 2022 Assessment & Plan (1) Acute lumbar radiculopathy: Plan: - Worsened x24 hours prior to admission, with shooting pain down the right leg into the ankle - Patient is without numbness, urinary retention, or saddle anesthesia; however has significant pain with any movement (only comfortable lying completely flat) - Lumbar x-ray: No acute fractures, degenerative changes - MRI 07/09 without acute fractures, Grade 1 anterolisthesis L4-5, and L4-L5 spurring and facet arthrosis causing severe canal stenosis and moderate bilateral neuroforaminal stenosis - Scheduled Tylenol and Toradol with morphine/Dilaudid as needed for pain with parameters - Ortho Spine consulted and appreciate recommendations, case discussed with Dr. Burger; for surgical correction tomorrow, NPO at midnight - PT/OT will be ordered post-op (2) Avascular necrosis of bone of right hip: Plan: - Patient has known avascular necrosis of both femoral heads right greater than left; is anticipating joint replacement after his back pain is better controlled. Physical exam on admission more consistent with lumbar stenosis with radiculopathy - Pelvis XR: No acute bony abnormality is seen involving the hips or pelvis. There is avascular necrosis of the femoral heads, right greater than left - Right femur: No evidence of right femoral fracture. Avascular necrosis of the femoral head right greater than left - Continue pain control as above (3) CAD (coronary atherosclerotic disease): Plan: - Cardiac cath 05/18/2022 which showed mild in-stent restenosis and multivessel mild to moderate nonocclusive coronary disease - Had RCA stent x1 originally placed in 2012. At cath 05/18 PCI was not recommended - At time of bedside visit he does not have any shortness of breath, difficulty breathing, or chest pain - Continue metoprolol, losartan, atorvastatin, aspirin (4) Chronic idiopathic urticaria: Plan: - Continue home omalizumab, patient next due in July - No hives on assessment, continue outpatient follow-up (5) Hyperlipidemia: Plan: - Continue statin (6) Reflux esophagitis: Plan: - Continue Protonix (7) HTN (hypertension): Plan: - Continue metoprolol (8) ADA (acute kidney injury): Plan: - Resolved with holding losartan/HCTZ and giving IV fluids - Continue to hold HCTZ and losartan for now, and resume losartan first if BP can tolerate after surgery - BMP daily Plan DVT ppx: defer chemoppx given surgery in AM Admission and Anticipated Discharge Date Admission Date: July 08, 2022 Subjective Continued severe low back and right leg pain despite morphine. Relief achieved with Dilaudid. Otherwise no complaints including no nausea, chest pain, shortness of breath. Review of Systems Review of Systems: All systems reviewed & are unremarkable except as noted in Subjective Physical Exam Constitutional: WD/WN, vitals as above uncomfortable appearing Respiratory: normal respiratory effort, lungs clear to auscultation Cardiovascular: RRR, no murmur, no edema Gastrointestinal (Abdomen): normal bowel sounds, soft, nontender, no hepatosplenomegaly Musculoskeletal: RLE decreased strength with plantarflexion compared to left side, also with increased pain Skin: no rashes, warm and dry Psychiatric: AAOx3 Results & Data Results & Data ([facility]) Vital Signs (Past 12 Hours) Vital Signs Temp Pulse Resp BP Pulse Ox O2 Del Method 07/09/22 20:33 36.6 C 61 16 115/72 94 Room Air PG Care Time/CCT Total # of Minutes Spent Total Time Spent with Patient: Total time spent is greater than 50% in coordination of care (as documented) at patient's floor/unit and/or counseling patient: Coding Level of Care Code 88232 SUB INP/OBS CARE 3/50MIN Diagnoses Acute lumbar radiculopathy M54.16 Avascular necrosis of bone of right hip M87.051 CAD (coronary atherosclerotic disease) I25.10 Chronic idiopathic urticaria L50.1 Hyperlipidemia E78.5 Reflux esophagitis K21.0 HTN (hypertension) I10 ADA (acute kidney injury) N17.9
[2022-07-10] MEDS: TAMSULOSIN HCL 0.4 MG CAP PO SCH (08:02)
[2022-07-10] MEDS: ASPIRIN 81 MG ECTAB PO SCH (08:02)
[2022-07-10] MEDS: PANTOprazole 40 MG TAB PO SCH ×2 (08:02→20:09)
[2022-07-10] MEDS: ATORVASTATIN 40 MG TAB PO SCH (08:03)
[2022-07-10] MEDS: METOPROLOL TARTRATE 50 MG TAB PO SCH ×2 (08:03→21:46)
[2022-07-10] MEDS: ALPRAZolam 0.25 MG TABLET PO PRN ×2 (08:06→20:10)
[2022-07-10] MEDS ORDERED: MoRPHine SULFATE 4 MG/ML 1 ML CARP\\VIAL IV PRN ×3 (08:27→10:38)
[2022-07-10] MEDS ORDERED: HYDROmorphone INJ 0.5 MG/0.5 ML SYR IV STA ×2 (10:38→20:00)
[2022-07-10] MEDS: KETOROLAC TROMETHAMINE 10 MG TABLET PO SCH ×2 (10:44→18:19)
--- NOTE | 2022-07-10 11:05 | Orthopedic Progress Note ---
Date of Service July 10, 2022 Assessment & Plan (1) Acute lumbar radiculopathy: Plan: MRI obtained yesterday does demonstrate evidence of severe spinal stenosis with spondylolisthesis L4-L5. I believe there is a secondary disc herniation at L4-5 on the right with adding additional compression of the traversing exiting nerve roots. This would be the underlying cause of his severe recurrent radiculopathy and inability to move. This point we will recommend lumbar decompression and fusion L4-L5. Would require aggressive facetectomies to adequately decompress the canal further producing risk of instability and subsequently requiring fusion. Risk benefits pros cons and alternatives were outlined in detail. This time we will make him n.p.o. after midnight and plan for surgery tomorrow. Admission and Anticipated Discharge Date Admission Date: July 08, 2022 Subjective Patient continues to note severe back and right leg pain with any motion. It is unremitting in nature. He is only comfortable perfectly still and lying supine. Physical Exam Physical Exam: On exam he is not distressed. Continues to demonstrate breakaway weakness and tension signs to the right lower extremity. Left lower extremities asymptomatic. Results & Data ([facility]) Vital Signs (Past 12 Hours) Vital Signs Temp Pulse Resp BP Pulse Ox O2 Del Method 07/10/22 07:59 36.8 C 62 18 127/78 94 Room Air
[2022-07-10] MEDS: HYDROmorphone INJ 0.5 MG/0.5 ML SYR IV PRN (19:41)
[2022-07-10] MEDS: ENOXAPARIN INJ 40 MG/0.4 ML SYR SQ SCH (20:09)
[2022-07-11] MEDS: ACETAMINOPHEN 500 MG TAB PO SCH ×2 (02:10→09:38)
[2022-07-11] MEDS: KETOROLAC TROMETHAMINE 10 MG TABLET PO SCH ×2 (02:10→09:38)
[2022-07-11] MEDS: HYDROmorphone INJ 0.5 MG/0.5 ML SYR IV PRN ×2 (04:05→17:50)
[2022-07-11] MEDS: PANTOprazole 40 MG TAB PO SCH ×2 (08:30→19:36)
[2022-07-11] MEDS: METOPROLOL TARTRATE 50 MG TAB PO SCH ×2 (08:30→19:35)
[2022-07-11] MEDS: TAMSULOSIN HCL 0.4 MG CAP PO SCH (08:30)
[2022-07-11] MEDS: ASPIRIN 81 MG ECTAB PO SCH (08:31)
[2022-07-11] MEDS: ATORVASTATIN 40 MG TAB PO SCH (08:31)
--- NOTE | 2022-07-11 11:36 | Hospitalist Progress Note ---
Date of Service July 11, 2022 Assessment & Plan (1) Acute lumbar radiculopathy: Plan: Appreciate orthopedic surgery evaluation and recommendations. Awaiting surgical intervention later today, July 11. Continue supportive care. Continue pain management. MRI 07/09 without acute fractures, Grade 1 anterolisthesis L4-5, and L4-L5 spurring and facet arthrosis causing severe canal stenosis and moderate bilateral neuroforaminal stenosis. Continue pain control measures. PT/OT will be ordered post-op (2) Avascular necrosis of bone of right hip: Plan: Bilateral. Not new. Supportive care. Pain control measures as needed. Patient has known avascular necrosis of both femoral heads. Eventual bilateral hip replacements needed. (3) CAD (coronary atherosclerotic disease): Plan: Cardiac cath 05/18/2022 showed mild in-stent restenosis and multivessel mild to moderate nonocclusive coronary disease. Had RCA stent x1 originally placed in 2012. At cath 05/18 PCI was not recommended. Stable. Continue current medical management (4) Chronic idiopathic urticaria: Plan: Stable. Continue home omalizumab (5) Hyperlipidemia: Plan: Stable. Continue statin therapy (6) Reflux esophagitis: Plan: Stable. Continue Protonix therapy (7) HTN (hypertension): Plan: Stable. Continue metoprolol therapyl (8) ADA (acute kidney injury): Plan: Resolved with holding losartan/HCTZ and giving IV fluids. Will resume postoperatively. Monitor intake and output. Serial labs Plan Possible rehab placement postoperatively Admission and Anticipated Discharge Date Admission Date: July 11, 2022 Subjective Alert and oriented. No acute distress while lying flat in bed. Awaiting surgical intervention by Dr. Gerry Burger, later today, July 11 Review of Systems Review of Systems: Constitutional-no fever or chills ENT-no blurred vision, no double vision, no epistaxis, no sore throat Respiratory-no cough, no wheezing, no shortness of breath Cardiac-no palpitations, no chest pain, no syncope GI-no nausea, vomiting, diarrhea, melena, hematochezia -no urinary retention, no urinary incontinence, no dysuria, no hematuria Musculoskeletal-exacerbation of his lumbar pain with right leg pain and right leg weakness consistent with sciatica Skin-no bruising, no rashes, no pruritus Neuro-no isolated weakness, no paresthesia, no weakness Psych-no depression, no anxiety Physical Exam Physical Exam: General-alert and oriented x3, no fevers, no chills HEENT-head atraumatic and normocephalic, TMs intact bilaterally, pupils equal and reactive to light, extraocular muscles intact Neck-no lymphadenopathy or thyromegaly, trachea midline Chest-clear to auscultation percussion. No rales wheezing or rhonchi Cardiac-regular rate and rhythm, normal S1 and S2, no murmurs Abdomen-normal bowel sounds, nontender, no hepatosplenomegaly Extremities-weakness of the right leg. No edema Neuro-cranial nerves II through XII intact, right lower extremity weakness and discomfort consistent with right lumbar radiculopathy. Psych-normal affect, normal mood Results & Data Results & Data ([facility]) Vital Signs (Past 12 Hours) Vital Signs Temp Pulse Resp BP Pulse Ox O2 Del Method 07/11/22 07:15 36.6 C 63 14 159/82 H 97 Room Air Laboratory Results 07/10/22 06:09 07/10/22 06:09 PG Care Time/CCT Total # of Minutes Spent Total Time Spent with Patient: Total time spent is greater than 50% in coordination of care (as documented) at patient's floor/unit and/or counseling patient: Coding Level of Care Code 91329 SUB INP/OBS CARE 3/50MIN Diagnoses Acute lumbar radiculopathy M54.16 Avascular necrosis of bone of right hip M87.051 CAD (coronary atherosclerotic disease) I25.10 Chronic idiopathic urticaria L50.1 Hyperlipidemia E78.5 Reflux esophagitis K21.0 HTN (hypertension) I10 ADA (acute kidney injury) N17.9
--- NOTE | 2022-07-11 12:04 | Anesthesiology Consultation ---
Date of Service July 11, 2022 Assessment & Plan (1) Encounter for pre-operative examination: Chart Review Chart Review: Acceptable Risk for Surgery and Patient NOT seen in Pre Admission Testing Consults Requested none History Surgery Operation Date: 07/11/22 07:00 Proposed Procedures p L4-L5 Decompression Fusion - Aaron Burger DO Height/Weight Height: 5 ft 9 in Weight: 90.265 kg Allergies Allergy/AdvReac Type Severity Reaction Status Date / Time cashew nut Allergy Unknown Verified 07/01/22 12:54 Medications Home Medications Medication Instructions Recorded Confirmed Last Taken alprazolam 0.25 mg tablet 0.25 mg PO BID 07/12/19 07/09/22 07/08/22 hydrochlorothiazide 25 mg tablet 25 mg PO QAM 07/12/19 07/09/22 07/08/22 metoprolol tartrate 50 mg tablet 75 mg PO BID 07/12/19 07/09/22 07/08/22 pantoprazole 40 mg tablet,delayed 40 mg PO BID #180 tabs 07/26/19 07/09/22 07/08/22 release cetirizine 10 mg capsule 10 mg PO BID PRN Allergy Symptoms 01/10/20 07/09/22 07/08/22 09:00 #60 caps omalizumab 150 mg/mL subcutaneous 300 mg (2 mL) subcut Q4WK #2 mL 07/16/20 07/09/22 06/29/22 syringe (Xolair) atorvastatin 40 mg tablet 40 mg PO BID 05/11/22 07/09/22 07/07/22 losartan 50 mg tablet 50 mg PO DAILY 05/11/22 07/09/22 07/08/22 tamsulosin 0.4 mg capsule 0.4 mg PO DAILY 05/11/22 07/09/22 07/08/22 aspirin 81 mg tablet,delayed 81 mg PO DAILY 05/18/22 07/09/22 07/08/22 release folic acid 1 mg tablet 1 mg PO DAILY 07/09/22 07/09/22 07/08/22 gabapentin 300 mg capsule 600 mg PO TID 07/09/22 07/09/22 07/08/22 Active Medications Generic Name Dose Route Start Last Admin Trade Name Freq PRN Reason Stop Dose Admin Acetaminophen 1,000 mg 07/09/22 10:00 07/11/22 09:38 Acetaminophen 500 Mg Tab PO 08/08/22 09:14 1,000 mg Q8H DOMITILA Administration Alprazolam 0.25 mg 07/09/22 09:10 07/10/22 20:10 Alprazolam 0.25 Mg Tablet PO 08/08/22 09:09 0.25 mg Q12H PRN Administration Anxiety Aspirin 81 mg 07/09/22 09:00 07/11/22 08:31 Aspirin 81 Mg Ectab PO 08/08/22 08:59 81 mg DAILY DOMITILA Administration Atorvastatin Calcium 40 mg 07/09/22 09:00 07/11/22 08:31 Atorvastatin 40 Mg Tab PO 08/08/22 08:59 40 mg DAILY DOMITILA Administration Enoxaparin Sodium 40 mg 07/09/22 21:00 07/10/22 20:09 Enoxaparin Inj 40 Mg/0.4 Ml Syr SQ 08/08/22 20:59 40 mg Q24H DOMITILA Administration Hydrochlorothiazide 25 mg 07/09/22 09:00 07/09/22 08:30 Hydrochlorothiazide 25 Mg Tab PO 08/08/22 08:59 25 mg QAM DOMITILA Administration Hydromorphone HCl 0.5 mg 07/10/22 10:38 07/11/22 04:05 Hydromorphone Inj 0.5 Mg/0.5 Ml Syr IV 07/24/22 10:37 0.5 mg Q4H PRN Administration severe/breakthrough pain Ketorolac Tromethamine 10 mg 07/10/22 10:00 07/11/22 09:38 Ketorolac Tromethamine 10 Mg Tablet PO 07/15/22 09:29 10 mg Q8H DOMITILA Administration Losartan Potassium 50 mg 07/09/22 09:00 07/09/22 08:30 Losartan Potassium 50 Mg Tab PO 08/08/22 08:59 50 mg DAILY DOMITILA Administration Metoprolol Tartrate 50 mg 07/08/22 21:00 07/11/22 08:30 Metoprolol Tartrate 50 Mg Tab PO 08/07/22 20:59 50 mg BID DOMITILA Administration Pantoprazole Sodium 40 mg 07/08/22 21:00 07/11/22 08:30 Pantoprazole 40 Mg Tab PO 08/07/22 20:59 40 mg BID DOMITILA Administration Tamsulosin HCl 0.4 mg 07/09/22 09:00 07/11/22 08:30 Tamsulosin Hcl 0.4 Mg Cap PO 08/08/22 08:59 0.4 mg DAILY DOMITILA Administration NPO Date Last Intake of Fluids: 07/10/22 Time Last Intake of Fluids: 23:59 Date Last Intake of Solids: 07/10/22 Time Last Intake of Solids: 23:59 Past Medical History Medical History (Updated 07/11/22 @ 12:04 by Quinn Lion DO) Cardiac murmur DX CHILD> NO LONGER HAS PER PATIENT Hx of fracture of right hip Myocardial Infarction 2012 > 1 STENT Sleep apnea NO OFFICIAL DX Swallowing problem REASON FOR EGD Past Family History Family History Denies family history of Crohn's disease Colorectal cancer Ulcerative colitis Past Surgical History Surgical History H/O heart artery stent 1 STENT> FEB 2013 > FOR CHEST PAIN> [facility] [place] H/O left knee surgery H/O partial thyroidectomy History of cardiac cath SEE STENT INFO History of colonoscopy S/P cervical spinal fusion NO ROM RESTRICTION S/P tonsillectomy and adenoidectomy Social History Smoking Status: Former smoker tobacco type: cigars Smoking cigarettes per day: 1 CIGAR PER DAY Smoking End Date: 2002 Hx Alcohol Use: Yes Alcohol type: beer alcohol intake frequency: a few times a week Hx Substance Use: No substance use type: does not use Physical Exam Vital Signs Last Vital Signs Temp 97.9 F 07/11/22 07:15 Pulse 63 07/11/22 07:15 Resp 14 07/11/22 07:15 BP 159/82 H 07/11/22 07:15 Pulse Ox 97 07/11/22 07:15 O2 Del Method Room Air 07/11/22 07:15 Testing Laboratory Results 07/10/22 06:09 07/10/22 06:09 PT 11.3 Seconds (9.0-12.0) 07/08/22 13:55 INR 1.1 (0.9-1.1) 07/08/22 13:55 APTT 26.2 Seconds (21.0-31.0) 07/08/22 13:55 Urine Color Yellow 07/08/22 14:19 Urine Appearance Clear (Clear) 07/08/22 14:19 Urine pH 7.0 (4.5-7.5) 07/08/22 14:19 Ur Specific [place] 1.021 (1.000-1.030) 07/08/22 14:19 Urine Protein Negative (Negative) 07/08/22 14:19 Urine Glucose (UA) Negative (Negative) 07/08/22 14:19 Urine Ketones Negative (Negative) 07/08/22 14:19 Urine Nitrite Negative (Negative) 07/08/22 14:19 Ur Leukocyte Esterase Negative (Negative) 07/08/22 14:19 Electrocardiogram Date: 07/08/22 Findings: + NSR @ and + LBBB Chest X-Ray Date: 07/08/22 Findings: + NAD Cardiac Catheterization Date: 05/18/22 1. Patent prior stent with mild in-stent restenosis 2. Multivessel mild to moderate nonocclusive coronary disease as described. 3. Angiographically borderline disease in a large proximal posterolateral branch. FFR analysis does not achieve hemodynamic significance to warrant PCI. 4. Recommendations: We will optimize guideline directed medical therapy for secondary prevention of coronary disease to include low-dose aspirin, high intensity statin therapy, beta-sandi, plus or minus PASHA inhibitor/ARB. We will titrate up antianginal regimen as tolerated. Carefully reassess symptoms status for worsening angina by regular clinical follow-up.
[2022-07-11] MEDS ORDERED: PROPOFOL IV EMULSION 10 MG/ML 20 ML VIAL IV ONE (13:05)
[2022-07-11] MEDS ORDERED: ONDANSETRON INJ 2 MG/ML 2 ML VIAL ONE (13:05)
[2022-07-11] MEDS ORDERED: DEXAMETHASONE SOD INJ 4 MG/ML VIAL ONE (13:05)
[2022-07-11] MEDS ORDERED: fentaNYL citrate 100 MCG/2 ML VIAL ONE ×2 (13:05)
[2022-07-11] MEDS ORDERED: MIDAZOLAM HCL 1 MG/ML 2ML VIAL ONE (13:05)
[2022-07-11] MEDS ORDERED: ROCURONIUM BROMIDE 10 MG/ML 5 ML VIAL IV ONE (13:06)
--- NOTE | 2022-07-11 13:15 | History & Physical Bridge Note ---
Date of Service July 11, 2022 History & Physical Bridge Note I have examined the patient, reviewed the History & Physical and in the interval since the performance of the History & Physical I have noted the following changes of clinical significance: no changes noted Lumbar decompression and fusion L4-L5
[2022-07-11] MEDS ORDERED: ATROPINE SULFATE 0.1 MG/ML 10ML SYR IV PRN (13:18)
[2022-07-11] MEDS ORDERED: ONDANSETRON INJ 2 MG/ML 2 ML VIAL IV PRN ×2 (13:18→16:55)
[2022-07-11] MEDS ORDERED: ePHEDrine sulfate 50 MG/ML AMP IV PRN (13:18)
[2022-07-11] MEDS ORDERED: fentaNYL citrate 100 MCG/2 ML VIAL IV PRN (13:18)
[2022-07-11] MEDS ORDERED: ceFAZolin 2,000 MG/15 ML IV PUSH IV ONE (13:24)
[2022-07-11] MEDS ORDERED: ceFAZolin 2000MG 2,000 MG/15 ML SYR IV ONE (13:33)
[2022-07-11] MEDS ORDERED: ceFAZolin 330 MG/ML 1 GM VIAL ONE (13:35)
[2022-07-11] MEDS ORDERED: BUPIVACAINE/EPINEPHRINE 0.25% 1:200,000 30 ML VIAL ONE (13:35)
[2022-07-11] MEDS ORDERED: ePHEDrine sulfate 50 MG/ML AMP ONE (14:26)
[2022-07-11] MEDS ORDERED: PHENYLEPHRINE 100MCG/ML 5ML SYR ONE (14:26)
[2022-07-11] MEDS ORDERED: FLOSEAL HEMOSTATIC MATRIX 10ML TOP ONE (14:35)
[2022-07-11] MEDS ORDERED: SUGAMMADEX SODIUM 200 MG/2 ML VIAL IV ONE (15:12)
[2022-07-11] MEDS ORDERED: HYDROmorphone INJ 2 MG/ML SYR/VIAL ONE (15:15)
--- NOTE | 2022-07-11 15:50 | Operative Report ---
Post Operative Report Pre & Post Diagnosis Operation Date: 07/11/22 07:00 Pre-Op Diagnosis: Lumbar spinal stenosis with spondylolisthesis L4-L5. Hernia nucleus pulposus L4-L5 Post-Op Diagnosis: Same I identified the patient and participated in the time-out.: Yes Procedure Operation Date: 07/11/22 07:00 Actual Procedures #1 lumbar decompression with bilateral medial facetectomies and foraminotomies L3-L4 L4-L5. #2 posterior spinal fusion L4-L5. #3 placement posterior instrumentation L4-L5. #4 interbody fusion L4-L5. #5 placement of Spira 15 x 2 6 mm at L4-L5. #6 placement locally harvested morselized autograft in the posterior gutters. #7 placement of I factor combined with V toss in the interbody space and posterior gutters. Surgeon Aaron Burger, Director Microbiology None Estimated Blood Loss 150 Findings Consistent with Post-Op Diagnosis Specimens None Indications This is a 71-year-old male who presents with severe radiculopathy. After failing course of nonoperative care and having inability to ambulate he is here for urgent decompression fusion. Description of Procedure Patient was met with identified informed consent obtained. Patient was then taken to the operative suite underwent a patient placed in a prone position the [place] table top Sumit frame. All bony prominences well-padded eyes inspected to ensure no external pressure placed upon the. This point the lumbar spine was prepped and draped in normal sterile fashion. Sharp dissection with the assistance of Bovie cautery was performed down to and exposing the lamina and transverse processes of L4 and L5. From caudal cephalad fashion complete laminectomy of L4 partial anatomy of L3 was performed including bilateral medial facetectomies and foraminotomies addressing severe spinal stenosis. There is also evidence of a disc herniation at L4-5 on the right extending out of the foramen. After complete decompression pedicle screws were placed at L4 and L5 bilaterally with assistance of fluoroscopy and the properly sized adin placed. By way of a transforaminal approach on the right a complete discectomy was performed endplates curetted to subcortical bleeding bone and a 15 x 26 mm Spira cage with I factor tapped in position. The rods were then locked in final position bilaterally. The transverse processes of L 4 L5 burred to subcortical bleeding bone. I factor mildly test and locally harvested morselized autograft was placed in the posterior gutters. 15 round KARLA drain inserted. The incision was then closed with subcutaneous Vicryl and 4 Monocryl for final skin closure. Steri-Strips dressings placed. Patient awakened taken to PACU stable condition. Please note spinal cord monitoring was utilized at the procedure no changes noted. I attest to the content of the Intraoperative Record and any orders documented therein. Any exceptions are noted below.
--- NOTE | 2022-07-11 16:04 | Fluoroscopy Report ---
FL lumbar spine 2-3V CLINICAL HISTORY: L4-L5 DECOMPRESSION AND FUSION TECHNIQUE: 2 views were obtained with the C-arm in the OR with the above procedure. Total fluoroscopy time was 19.4 seconds. Radiation dose was 14.26 mGy. Comparison: Comparison is made to MRI lumbar spine 07/09/2022 FINDINGS/IMPRESSION: Intraoperative images were obtained of L4-L5 decompression and fusion. Please correlate with intraoperative fluoroscopy and operative report. ACT 112: Negative or not required by law. Electronically signed by: Sarbjit Proctor M.D. 07/11/2022 4:03 PM
--- NOTE | 2022-07-11 16:36 | Anesthesiology Progress Note ---
Date of Service July 11, 2022 Anesthesia Post Procedure Vital Signs Vital Signs: Temp Pulse Pulse Resp BP Pulse Ox O2 Del Method 07/11/22 16:25 36.7 C 77 17 132/78 99 Nasal Cannula 07/11/22 16:05 77 14 127/64 100 Oxymask 07/11/22 16:15 80 13 119/66 100 Oxymask 07/11/22 15:57 36.4 C L 82 14 126/75 100 Oxymask 07/11/22 12:13 36.6 C 68 18 182/90 H 95 Room Air 07/11/22 07:15 36.6 C 63 14 159/82 H 97 Room Air 07/10/22 21:36 36.7 C 64 17 154/81 H 96 Room Air 07/10/22 20:02 Room Air O2 Flow Rate 07/11/22 16:25 2 07/11/22 16:05 13 07/11/22 16:15 3 07/11/22 15:57 13 07/11/22 12:13 07/11/22 07:15 07/10/22 21:36 07/10/22 20:02 Pain Intensity Lower Back: Pain Intensity: 4 Right Hip: Pain Intensity: 8 Transfer of Care Handoff Completed per policy Notes Mental Status: alert / awake / arousable Patient Amnestic to Procedure: Yes Nausea / Vomiting: adequately controlled Pain: adequately controlled Airway Patency, RR, SpO2: stable & adequate BP & HR: stable & adequate Hydration State: stable & adequate Anesthetic Complications: no major complications apparent and Pt Satisfied with anesthetic care
[2022-07-11] MEDS ORDERED: FAMOTIDINE 20 MG TAB PO PRN (16:55)
[2022-07-11] MEDS ORDERED: ONDANSETRON 4 MG OD TAB PO PRN (16:55)
[2022-07-11] MEDS ORDERED: ALUMINUM/MAGNESIUM SUSP 30 ML UDC PO PRN (16:55)
[2022-07-11] MEDS ORDERED: bisacodyL 10 MG SUPP PR PRN (16:55)
[2022-07-11] MEDS ORDERED: DO NOT ADMINISTER PNEUMOCOCCAL VACCINE PRN (16:55)
[2022-07-11] MEDS ORDERED: ACETAMINOPHEN 1,000 MG/100 ML VIAL IV PRN (16:55)
[2022-07-11] MEDS ORDERED: LORazepam 2 MG/1 ML VIAL IV PRN (16:55)
[2022-07-11] MEDS ORDERED: MAGNESIUM HYDROXIDE SUSP 30 ML UDC PO PRN (16:55)
[2022-07-11] MEDS ORDERED: traMADol HCL 50 MG TABLET PO PRN (16:55)
[2022-07-11] MEDS ORDERED: PROMETHAZINE HCL 12.5 MG in SODIUM CHLORIDE 0.9% 50 ML IV PRN (16:55)
[2022-07-11] MEDS ORDERED: diphenhydrAMINE Capsule 25 MG CAP PO PRN (16:55)
[2022-07-11] MEDS ORDERED: METOCLOPRAMIDE HCL INJ 5 MG/ML 2 ML VIAL IV PRN (16:55)
[2022-07-11] MEDS ORDERED: NALOXONE HCL 0.4 MG/1 ML VIAL/CARP IV PRN (16:55)
[2022-07-11] MEDS ORDERED: oxyCODONE HCL IR 5 MG TAB (IMMEDIATE RELEASE) PO PRN (16:55)
[2022-07-11] MEDS ORDERED: SOD PHOSPHATE/SOD BIPHOSPHATE ENEMA 132 ML BTL PR PRN (16:55)
[2022-07-11] MEDS ORDERED: DO NOT ADMINISTER FLU VACCINE PRN (16:55)
[2022-07-11] MEDS: LACTATED RINGER'S 1,000 ML IV SCH ×2 (17:59→20:52)
[2022-07-11] MEDS: DOCUSATE SODIUM/SENNA 50/8.6MG TAB PO SCH (19:35)
[2022-07-11] MEDS: LORazepam 0.5 MG TAB PO PRN (19:45)
[2022-07-11] MEDS: ceFAZolin 2000MG 2,000 MG/15 ML SYR IV SCH (21:51)
[2022-07-12] MEDS: HYDROmorphone INJ 0.5 MG/0.5 ML SYR IV PRN (02:12)
[2022-07-12] MEDS ORDERED: HYDROmorphone INJ 0.5 MG/0.5 ML SYR IV PRN (02:18)
[2022-07-12] MEDS: POLYETHYLENE (MIRALAX) 17 GM PACK PO SCH ×3 (05:32→16:43)
[2022-07-12] MEDS: ceFAZolin 2000MG 2,000 MG/15 ML SYR IV SCH (05:32)
[2022-07-12 06:31] LABS: BUN Creatinine Ratio 22.2 (10-20); Calcium 9.2 mg/dl (8.5-10.1); Creatinine Clr Calc Pharmacy 70.7 ml/min; Est GFR (African American) 80.2 ml/min; Est GFR (Non-African American) 69.2 ml/min; Potassium 4.3 mmol/L (3.5-5.1)
[2022-07-12 06:39] LABS: Basophils # (auto) 0.01 K/uL (0-0.2); Basophils % (auto) 0.1 %; Hemoglobin 11.5 g/dl (14.0-18.0); Immature Granulocytes # (auto) 0.05 K/uL (0.01-0.20); Immature Granulocytes % (auto) 0.6 %; Lymphocytes # (auto) 0.56 K/uL (1.2-3.4); Lymphocytes % (auto) 6.3 %; Mean Corpuscular Hemoglobin 32.7 pg (25.0-34.0); Mean Corpuscular Hgb Conc 37.1 g/dL (32.0-36.0); Mean Corpuscular Volume 88.1 fL (80.0-100.0); Mean Platelet Volume 10.7 fL (9.4-12.4); Monocytes # (auto) 0.87 K/uL (0.11-0.59); Monocytes % (auto) 9.9 %; Neutrophils # (auto) 7.34 K/uL (1.40-6.50); Neutrophils % (auto) 83.1 %; Platelet Count 144 K/uL (130-400); RDW Coefficient of Variation 11.9 % (11.5-14.5); RDW Standard Deviation 37.9 fL (36.4-46.3); Red Blood Count 3.52 M/uL (4.70-6.10); White Blood Count 8.83 K/ul (4.8-10.8)
--- NOTE | 2022-07-12 08:53 | Orthopedic Progress Note ---
Date of Service July 12, 2022 Assessment & Plan (1) Acute lumbar radiculopathy: Plan: This time initiate physical therapy monitor his KARLA output hopefully discharge home in the next few days. Admission and Anticipated Discharge Date Admission Date: July 11, 2022 Subjective Back pain controlled right leg pain markedly improved Physical Exam Physical Exam: Patient is in bed. Appears comfortable. Discussing the testing. Results & Data ([facility]) Vital Signs (Past 12 Hours) Vital Signs Temp Pulse Resp BP Pulse Ox O2 Del Method 07/12/22 07:33 36.9 C 85 18 137/71 93 Room Air 07/12/22 02:29 36.7 C 86 17 159/90 H 94 Room Air 07/11/22 23:12 36.7 C 84 17 158/88 H 95 Room Air
[2022-07-12] MEDS: ACETAMINOPHEN 500 MG TAB PO PRN (09:30)
[2022-07-12] MEDS: ASPIRIN 81 MG ECTAB PO SCH (09:30)
[2022-07-12] MEDS: LORazepam 0.5 MG TAB PO PRN ×2 (09:32→19:36)
[2022-07-12] MEDS: TAMSULOSIN HCL 0.4 MG CAP PO SCH (09:32)
[2022-07-12] MEDS: PANTOprazole 40 MG TAB PO SCH ×2 (09:32→19:32)
[2022-07-12] MEDS: METOPROLOL TARTRATE 50 MG TAB PO SCH ×2 (09:32→19:33)
[2022-07-12] MEDS: ATORVASTATIN 40 MG TAB PO SCH (09:33)
[2022-07-12] MEDS: dexAMETHasone 6 MG in SYRINGE 0 ML IV SCH (09:33)
--- NOTE | 2022-07-12 14:51 | Hospitalist Progress Note ---
Date of Service July 12, 2022 Assessment & Plan (1) Acute lumbar radiculopathy: Plan: Appreciate orthopedic surgery evaluation and recommendations. Surgical interv ention completed on July 11, POD #1. Continue supportive care. Continue pain management. MRI 07/09 without acute fractures, Grade 1 anterolisthesis L4- 5, and L4-L5 spurring and facet arthrosis causing severe canal stenosis and moderate bilateral neuroforaminal stenosis. Continue pain control measures. PT/OT ordered (2) Avascular necrosis of bone of right hip: Plan: Bilateral. Supportive care. Pain control measures as needed. Patient has known avascular necrosis of both femoral heads. Eventual bilateral hip repla cements needed. (3) CAD (coronary atherosclerotic disease): Plan: Cardiac cath 05/18/2022 showed mild in-stent restenosis and multivessel mild to moderate nonocclusive coronary disease. Had RCA stent x1 originally placed in 2012. At cath 05/18 PCI was not recommended. Stable. Continue current medical management (4) Chronic idiopathic urticaria: Plan: Stable. Continue home omalizumab (5) Hyperlipidemia: Plan: Stable. Continue statin therapy (6) Reflux esophagitis: Plan: Stable. Continue Protonix therapy (7) HTN (hypertension): Plan: Stable. Continue metoprolol therapyl (8) ADA (acute kidney injury): Plan: Resolved with holding losartan/HCTZ and giving IV fluids. Monitor intake and output. Serial labs Plan Discharge later this week. Probably to home. Admission and Anticipated Discharge Date Admission Date: July 11, 2022 Subjective Alert and oriented. Sitting at the side of the bed at the time of my rounds. He feels much better since surgery completed yesterday. Postoperative day #1. Review of Systems Review of Systems: Constitutional-no fever or chills ENT-no blurred vision, no double vision, no epistaxis, no sore throat Respiratory-no cough, no wheezing, no shortness of breath Cardiac-no palpitations, no chest pain, no syncope GI-no nausea, vomiting, diarrhea, melena, hematochezia -no urinary retention, no urinary incontinence, no dysuria, no hematuria Musculoskeletal-much improved lumbar pain after surgery. Right leg weakness has also improved Skin-no bruising, no rashes, no pruritus Neuro-no isolated weakness, no paresthesia, no weakness Psych-no depression, no anxiety Physical Exam Physical Exam: General-alert and oriented x3, no fevers, no chills HEENT-head atraumatic and normocephalic, pupils equal and reactive to light, extraocular muscles intact Neck-no lymphadenopathy or thyromegaly, trachea midline Chest-clear to auscultation percussion. No rales wheezing or rhonchi Cardiac-regular rate and rhythm, normal S1 and S2 Abdomen-normal bowel sounds, nontender, no hepatosplenomegaly Extremities-right lower extremity weakness has improved. No edema Neuro-cranial nerves II through XII intact, right lower extremity weakness and discomfort consistent with right lumbar radiculopathy have improved markedly postoperatively Psych-normal affect, normal mood Results & Data Results & Data ([facility]) Vital Signs (Past 12 Hours) Vital Signs Temp Pulse Resp BP Pulse Ox O2 Del Method 07/12/22 11:23 37.4 C 82 18 137/77 93 Room Air 07/12/22 07:33 36.9 C 85 18 137/71 93 Room Air Laboratory Results 07/12/22 05:49 07/12/22 05:49 PG Care Time/CCT Total # of Minutes Spent Total Time Spent with Patient: Total time spent is greater than 50% in coordination of care (as documented) at patient's floor/unit and/or counseling patient: Coding Level of Care Code 96915 SUB INP/OBS CARE 3/50MIN Diagnoses Acute lumbar radiculopathy M54.16 Avascular necrosis of bone of right hip M87.051 CAD (coronary atherosclerotic disease) I25.10 Chronic idiopathic urticaria L50.1 Hyperlipidemia E78.5 Reflux esophagitis K21.0 HTN (hypertension) I10 ADA (acute kidney injury) N17.9
[2022-07-12] MEDS: FERROUS SULFATE 325 MG TAB PO SCH (16:42)
[2022-07-12] MEDS: DOCUSATE SODIUM/SENNA 50/8.6MG TAB PO SCH (19:32)
[2022-07-13] MEDS: POLYETHYLENE (MIRALAX) 17 GM PACK PO SCH ×3 (00:50→13:57)
[2022-07-13] MEDS: FERROUS SULFATE 325 MG TAB PO SCH (07:42)
[2022-07-13] MEDS: ASPIRIN 81 MG ECTAB PO SCH (07:43)
[2022-07-13] MEDS: ATORVASTATIN 40 MG TAB PO SCH (07:43)
[2022-07-13] MEDS: PANTOprazole 40 MG TAB PO SCH (07:43)
[2022-07-13] MEDS: METOPROLOL TARTRATE 50 MG TAB PO SCH (07:43)
[2022-07-13] MEDS: TAMSULOSIN HCL 0.4 MG CAP PO SCH (07:43)
[2022-07-13] MEDS: dexAMETHasone 6 MG in SYRINGE 0 ML IV SCH (07:44)
[2022-07-13 08:18] LABS: Basophils # (auto) 0.01 K/uL (0-0.2); Basophils % (auto) 0.1 %; Eosinophils # (auto) 0.01 K/uL (0-0.50); Eosinophils % (auto) 0.1 %; Hemoglobin 11.1 g/dl (14.0-18.0); Immature Granulocytes # (auto) 0.05 K/uL (0.01-0.20); Immature Granulocytes % (auto) 0.5 %; Lymphocytes # (auto) 1.25 K/uL (1.2-3.4); Lymphocytes % (auto) 12.4 %; Mean Corpuscular Hemoglobin 33.3 pg (25.0-34.0); Mean Corpuscular Hgb Conc 35.8 g/dL (32.0-36.0); Mean Corpuscular Volume 93.1 fL (80.0-100.0); Mean Platelet Volume 10.8 fL (9.4-12.4); Monocytes # (auto) 1.26 K/uL (0.11-0.59); Monocytes % (auto) 12.5 %; Neutrophils # (auto) 7.49 K/uL (1.40-6.50); Neutrophils % (auto) 74.4 %; Platelet Count 192 K/uL (130-400); RDW Coefficient of Variation 12.6 % (11.5-14.5); RDW Standard Deviation 42.8 fL (36.4-46.3); Red Blood Count 3.33 M/uL (4.70-6.10); White Blood Count 10.07 K/ul (4.8-10.8)
[2022-07-13 08:31] LABS: BUN Creatinine Ratio 21.4 (10-20); Calcium 9.9 mg/dl (8.5-10.1); Creatinine Clr Calc Pharmacy 65.3 ml/min; Est GFR (African American) 72.8 ml/min; Est GFR (Non-African American) 62.8 ml/min; Potassium 4.4 mmol/L (3.5-5.1)
--- NOTE | 2022-07-13 08:44 | Orthopedic Progress Note ---
Date of Service July 13, 2022 Assessment & Plan (1) Acute lumbar radiculopathy: Plan: Nguyễn is postoperative day 2 status post TLIF L4-5. He is doing great. He is orthopedically stable for discharge. Patient would like to go home today. We will remove KARLA drain and dressing change just prior to discharge. He will need follow-up in our office in 2 weeks. Admission and Anticipated Discharge Date Admission Date: July 11, 2022 Subjective Nguyễn he is postoperative day 2 status post TLIF L4-5. He feels great. Right leg pain greatly improved. Still has some intermittent right hamstring pain but again improving. He is passing flatus but no bowel movement. KARLA drain output last shift was 30 cc. Yesterday in physical therapy ambling 450 feet plus the hallways. Review of Systems Review of Systems: All systems reviewed & are unremarkable except as noted in HPI & below Physical Exam Physical Exam: Lying in bed in no acute distress Alert and oriented x3 Lumbar dressing is clean dry intact with functioning KARLA drain Lower extremities strength unchanged bilaterally. LEONIDAS hose intact bilateral lower extremity
--- NOTE | 2022-07-13 12:03 | Discharge Summary ---
Date of Service July 13, 2022 Admission HPI Per Admitting Provider Nguyễn is a 71-year-old male with a past medical history of CAD, chronic angina, hyperlipidemia, reflux esophagitis, hypertension, and avascular necrosis of the right hip who presents with inability to ambulate due to severe pain of the right hip. He was recently seen [facility] with an MRI 06/29/2021 which showed evidence of spinal stenosis without significant compression or cauda equina. You are seen at bedside. He reports he has a longstanding history of bilateral hip pain due to avascular necrosis for which she is following with orthopedics with the [facility], eventually will have a hip replacement but has been pending work-up for his back pain first. He has had progressive back pain over the last 2 years and has lumbar stenosis. He was recently seen in the [facility] 06/29/2022 for severe back pain. He had a MRI at that time which was reviewed and shows as follows: MRI lumbar without contrast from 06/29/2022: Multilevel for aminal stenosis, spinal stenosis L3-L4/L4-L5,. Thecal sac 8.6 mm L3-L4 with moderate right neural for aminal stenosis, moderate foraminal stenosis on the left. L4/L5 7 mm anterior listhesis with broad-based disc protrusion indenting the ventral thecal sac, thecal sac measuring 7.5 mm s uggestive of spinal canal stenosis with marked for aminal stenosis on the right/left and Samson equina compression. L5/S1 broad-based disc bulge, spinal canal within normal limits, bilateral neural for aminal stenosis. Saw Dr. Dominick Aguila [facility] and discussed the above results with him. Per that consultation did not want to perform decompression surgery yet, but was going to try and injection shceduled for August 17. He reports after being discharged his back pain did improve, but suddenly worsened when he woke up this morning. He reports his pain was so severe he could not get out of bed due to pain and had to crawl to the door to let his dog out. He has not had any numbness/tingling or weakness, but his leg movement is limited by exacerbation of pain. Does have shooting pain which goes into his right leg and travels all the way down to the ankle. No pain in his left leg. He is chronically weaker on his right leg, but his strength in the lower extremities has not changed. He is voiding/peeing normally. He has not had a bowel movement in 2 days, is passing gas. He does not have any numbness/tingling in the saddle region. Reports he has had intermittent chest pain with ambulation, had a cardiac cath 05/18/2022 which showed mild in-stent restenosis and multivessel mild to moderate nonocclusive coronary disease. Had 1X mid RCA stent originally placed in 2012. At cath 05/18 PCI was not recommended. Patient was optimized on medical therapy with resumption of low-dose aspirin, and high intensity statin therapy, beta-sandi, and losartan. At time of bedside visit he does not have any shortness of breath, difficulty breathing, or chest pain. Pelvix XR: IMPRESSION:1. No acute bony abnormality is seen involving the hips or pelvis.2. There is no radiographic evidence of right femoral fracture.3. There is avascular necrosis of the femoral heads, right greater than left.4. Degenerative change as above. Lumbar x-ray: No acute fractures, degenerative changes Right femur: No evidence of right femoral fracture. Avascular necrosis of the femoral head right greater than left. CXR: No acute findings hx cervical fusion by [facility] 2008 Otherwise endorse history of hives on Omalizumab 300m next due 2nd week of july. takes for hives. Follows with Dr. Rojas as an outpatient. No recent exacerbation of hives. Medical History: Reviewed Medications: Reviewed Surgical History: Reviewed Allergies: Reviewed Social History: Quit cigarettes 2002. Etoh 6 pack daily, last drink 3 days ago, has not had withdrawal symptoms/seizures before and does not feel tremulous. Code Status: Full Code Principal Diagnosis Lumbar degenerative disc disease with lumbar stenosis, sciatica, acute blood loss anemia Discharge Exam General-alert and oriented x3, no fevers, no chills HEENT-head atraumatic and normocephalic, pupils equal and reactive to light, extraocular muscles intact Neck-no lymphadenopathy or thyromegaly, trachea midline Chest-clear to auscultation percussion. No rales wheezing or rhonchi Cardiac-regular rate and rhythm, normal S1 and S2 Abdomen-normal bowel sounds, nontender, no hepatosplenomegaly Extremities-right lower extremity weakness has improved. No edema Neuro-cranial nerves II through XII intact, right lower extremity weakness and discomfort consistent with right lumbar radiculopathy have improved markedly postoperatively Psych-normal affect, normal mood Discharge Data Allergies Allergy/AdvReac Type Severity Reaction Status Date / Time cashew nut Allergy Unknown Verified 07/01/22 12:54 Consultations 07/08/22 16:28 ED Decision to Admit Stat 07/08/22 17:53 Consult Orthopedic Surgery Routine Procedures Performed Operation Date: 07/11/22 07:00 Actual Procedures p L4-L5 Decompression and Fusion(Not Applicable) - Aaron Burger DO Ordered Studies 07/09/22 08:18 MR lumbar spine wo con Urgent 07/11/22 FL lumbar spine 2-3V Routine Hospital Course (1) Acute lumbar radiculopathy: Appreciate orthopedic surgery evaluation and recommendations. Surgical intervention completed on July 11, POD #2. Lumbar drain was discontinued today by orthopedic surgery. MRI 07/09 without acute fractures, Grade 1 anterolisthesis L4-5, and L4-L5 spurring and facet arthrosis causing severe canal stenosis and moderate bilateral neuroforaminal stenosis. Continue pain control measures. PT/OT (2) Avascular necrosis of bone of right hip: Bilateral. Supportive care. Pain control measures as needed. Patient has known avascular necrosis of both femoral heads. Eventual bilateral hip replacements needed. (3) CAD (coronary atherosclerotic disease): Cardiac cath 05/18/2022 showed mild in-stent restenosis and multivessel mild to moderate nonocclusive coronary disease. Had RCA stent x1 originally placed in 2012. At cath 05/18 PCI was not recommended. Stable. Continue current medical management (4) Chronic idiopathic urticaria: Stable. Continue home omalizumab (5) Hyperlipidemia: Stable. Continue statin therapy (6) Reflux esophagitis: Stable. Continue Protonix therapy (7) HTN (hypertension): Stable. Continue metoprolol therapyl (8) ADA (acute kidney injury): Resolved with holding losartan/HCTZ and giving IV fluids. Monitor intake and output. Serial labs. 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 You may walk to your tolerance. It is good exercise for your legs and back. Expect some back and intermittent leg aches and pains. 2. You may perform "counter-top" level activities (make a sandwich, ruth ann with a project, etc.). 3. No bending or lifting of more than 10 pounds or back twisting of any nature (roll like a log when turning in bed). 4. You may ride in a car for 20-30 minutes at a time. No driving until after your first visit with your doctor. 5. Frequent changes of position and restricting sitting to 30 minutes at a time will help limit the amount of back spasms and stiffness you may experience. 6. You may discontinue the use of ambulatory aids (cane, crutches, etc.) once your strength and confidence allow. 7. You may talent acquisition coordinator the shower and let water strike your incision when you arrive home at least once daily. Do not take a tub bath, sit in a hot tub or go into a swimming pool until after your first recheck in the office. SPECIAL CARE INSTRUCTIONS: VERY IMPORTANT TO READ AND REVIEW A. Your surgical incision has been closed with a cosmetic suture under the skin that will dissolve in about 6 weeks. In 14 days, you can use a pair of clean scissors and cut the suture that is left outside of the skin at the ends of your incision. 1. The small skin tapes can be removed 7 days after surgery if they have not fallen off by that point. 2. You may keep the wound open to air as much as possible to promote healing after post-op day number 5 unless told otherwise by your doctor. 3. If you think the wound looks like it is becoming infected (redness or worsening drainage) and/or you are experiencing fever, chill or worsening back pain and muscle spasms, contact the office so that we may evaluate you as soon as possible. B. Complications are uncommon, but please contact us if you have any signs or symptoms of: 1. wound infection (fever higher than 102.5 degrees F, redness, separation of wound, drainage, or increasing pain from the incision) 2. blood clots in legs (pain, swelling, redness and warmth in legs) 3. urinary tract infection (fever higher than 102.5 degrees F, burning upon urination or increased frequency of urination) 4. nerve problems (inability to walk on your toes or heels, numbness, loss of bowel or bladder control) 5. any other symptoms that concern you C. Please call the office at if you have any concerns or questions about your operation or recovery. D. No smoking! Smoking drastically decreases the chance of a solid fusion. E. Do not take any anti-inflammatory medications (Indocin, Advil, Motrin, Aspirin, Naprosyn, etc.) as these may inhibit the chance of a solid fusion. Tylenol is okay to take for pain. MANAGING PAIN AFTER SPINAL SURGERY 1. Narcotic medication is intended for short-term use and will be provided for surgical pain. Surgical pain usually lasts for a period of 4-6 weeks. Narcotic medication includes Percocet, Vicodin, Darvocet, Tylenol #3 or Lortab. 2. Longer-term pain is more appropriately treated with non-narcotic medication such as Tylenol ES. 3. Muscle spasm is not appropriately treated with narcotics. Muscle relaxers such as Soma, Flexeril or Skelaxin can be used along with Tylenol ES. 4. Remember that we all live with some "aches and pains". This is not unusual or uncommon after an injury or as we get older. a. Back pain is expected and may include muscle spasms for 4 to 6 weeks after surgery. The pain should gradually improve. If the pain worsens for no apparent reason, please contact the office. b. Intermittent leg pain may also be experienced and should not be concerned about unless it worsens for no apparent reason. If so, please contact the office. 5. We will provide appropriate medication within the normal guidelines of their prescribed use. We will also be very cautious and aware of potential abuse and extended duration of patients' medication needs. a. Pain medications are for your comfort and to assist with sleep and rest so that the tissue can heal. They are not provided in order to return to normal activity and should not be used through the day. To do so or worsening pain at night can result from ongoing tissue damage and development of tolerance to the prescribed medicine. 6. Please allow 2-3 days to process refills. Prescriptions will not be mailed but must be picked up at the office. FOLLOW UP VISIT: Keep your scheduled follow-up appointment. Any questions, please call the office at . Pending Studies at Discharge: No Stand-Alone Forms: My [facility], Smoking Cessation Medications and DC Order Prescriptions: New tramadol 50 mg tablet 50 mg PO Q6H PRN (Reason: pain, moderate) Qty: 30 0RF oxycodone 5 mg tablet 5 mg PO Q6H PRN (Reason: pain, severe) Qty: 30 0RF Continued alprazolam 0.25 mg tablet 0.25 mg PO BID hydrochlorothiazide 25 mg tablet 25 mg PO QAM metoprolol tartrate 50 mg tablet 75 mg PO BID pantoprazole 40 mg tablet,delayed release (DR/EC) 40 mg PO BID Qty: 180 1RF cetirizine 10 mg capsule 10 mg PO BID PRN (Reason: Allergy Symptoms) Qty: 60 6RF Xolair 150 mg/mL syringe 300 mg subcut Q4WK Qty: 2 11RF losartan 50 mg tablet 50 mg PO DAILY atorvastatin 40 mg tablet 40 mg PO BID tamsulosin 0.4 mg capsule 0.4 mg PO DAILY aspirin 81 mg Tablet,Delayed Release (Dr/Ec) 81 mg PO DAILY gabapentin 300 mg Capsule 600 mg PO TID folic acid 1 mg Tablet 1 mg PO DAILY Discharge Orders: Discharge Order (Routine); Ordered 07/13/22 Ordered By: Lauro Plasencia Admission Data Admit Date/Time: 07/11/22 08:07 Attending Provider: Lauro Plasencia Admit Provider: Ji Leblanc Primary Care Provider: [facility] Other Providers: [facility] ; Ji Leblanc ; Aaron Burger Coding Level of Care Code HOSP INP/OBS DISCH >30 MIN Diagnoses Acute lumbar radiculopathy M54.16 Avascular necrosis of bone of right hip M87.051 CAD (coronary atherosclerotic disease) I25.10 Chronic idiopathic urticaria L50.1 Hyperlipidemia E78.5 Reflux esophagitis K21.0 HTN (hypertension) I10 ADA (acute kidney injury) N17.9
[2022-07-13] MEDS: ACETAMINOPHEN 500 MG TAB PO PRN (12:13)
== END 2022-07-13 15:13 | disposition home or self-care (01) | DRG 454 ==
LOC: 3N 13:33 → ED 13:33 → SUATTDRO 17:40 → 3N 20:09